=== PATIENT | female | born 1950 | race Caucasian/White ===

== ENCOUNTER → 2016-11-18 | Outpatient (CLI) | payer BC ==
[2016-11-18 10:13] LABS: Basophils % (A) 0 %; CH 31.1; CHCM 33.8; Eosinophils # (A) 0.1 k/uL (0-0.7); Eosinophils % (A) 1 %; HCT 46.6 % (34.0-46.0); HGB 15.4 gm/dL (11.4-16.0); Luc # (Auto) 0.14; Luc % (Auto) 2; Lymphocytes # (A) 2.9 k/uL (1.0-4.8); Lymphocytes % (A) 34 %; MCH 30.6 pg (25.0-35.0); MCV 92.6 fL (80.0-100.0); Mean Platelet Volume 8.2; Monocytes # (A) 0.3 k/uL (0-1.0); Monocytes % (A) 4 %; Neutrophils % (A) 59 %; RBC 5.03 m/uL (3.80-5.40); RDW 13.1 % (11.5-15.5); WBC 8.5 k/uL (3.8-10.6); WBC (Perox) 8.28
[2016-11-18 10:35] LABS: ALT 33 U/L (9-52); AST 18 U/L (14-36); Alkaline Phosphatase 97 U/L (38-126); Anion Gap 12 mmol/L; Blood Urea Nitrogen 9 mg/dL (7-17); Calcium 9.3 mg/dL (8.4-10.2); Carbon Dioxide 27 mmol/L (22-30); Chloride 103 mmol/L (98-107); Cholesterol 188 mg/dL (<200); Glucose 115 mg/dL (74-99); HDL Cholesterol 69 mg/dL (40-60); Non-African American GFR(MDRD) >60 (>60 ml/min/1.73 sqM); Potassium 4.4 mmol/L (3.5-5.1); Sodium 142 mmol/L (137-145); Total Bilirubin 0.8 mg/dL (0.2-1.3); Total Protein 7.5 g/dL (6.3-8.2); Triglycerides 342 mg/dL (<150)
[2016-11-18 12:19] LABS: Hemoglobin A1C 5.7 % (4.2-6.1)
== END | disposition home or self-care (01) ==
LOC: LABWHC1 08:52
PROVIDERS: ATTEND Internal Medicine Geriatric Medicine
DX: E03.9 Hypothyroidism, unspecified (principal); E78.5 Hyperlipidemia, unspecified; M89.9 Disorder of bone, unspecified; R73.09 Other abnormal glucose
CPT/HCPCS: 36415; 80053; 80061; 82306; 83036; 84439; 84443; 85025

== ENCOUNTER → 2018-06-10 | Outpatient (CLI) | payer MEDICARE ==
--- NOTE | 2018-06-18 14:42 | MM ---
Reason for exam: screening (asymptomatic). Last mammogram was performed 5 years and 6 months ago. History: Patient is postmenopausal. Taking estrogen for 16 years. Physical Findings: A clinical breast exam by your physician is recommended on an annual basis and results should be correlated with mammographic findings. MG 3D Screening Mammo W/Cad Bilateral CC and MLO view(s) were taken. Prior study comparison: December 15, 2012, bilateral digital screening mammo w/CAD. There are scattered fibroglandular densities. Focal asymmetry upper outer quadrant right breast appears more defined and incompletely disperses on 3D. New small nodule 12 o'clock central left breast. ASSESSMENT: Incomplete: need additional imaging evaluation, BI-RAD 0 RECOMMENDATION: Special view mammogram of both breasts. If lesion persists on supplemental views, image directed ultrasound is recommended. [facility] will attempt to contact patient to return for supplemental views and ultrasound if indicated.
== END | disposition home or self-care (01) ==
LOC: RADMAMWWP 07:46
PROVIDERS: ATTEND Family Medicine
DX: Z12.31 Encounter for screening mammogram for malignant neoplasm of breast (principal)
CPT/HCPCS: 77063; 77067

== ENCOUNTER → 2018-06-30 | Outpatient (CLI) | payer MEDICARE ==
--- NOTE | 2018-06-30 13:47 | MM ---
Reason for exam: additional evaluation requested from abnormal screening. Last mammogram was performed 1 month ago. History: Patient is postmenopausal. Taking estrogen for 16 years. Physical Findings: Nurse did not find any significant physical abnormalities on exam. MG 3D Work Up W/Cad LORENA Bilateral ML view(s) were taken. Spot compression CC and spot compression MLO view(s) were taken of the right breast. Prior study comparison: June 10, 2018, bilateral MG 3d screening mammo w/cad. December 15, 2012, bilateral digital screening mammo w/CAD. Finding: There is a 5 mm equal density (isodense), obscured margin irregular mass in the upper outer quadrant, anterior position of the right breast. Persistent left 4mm nodule 4cm from the nipple, ultrasound recommended. New finding since June 10, 2018 and December 15, 2012. These results were verbally communicated with the patient and result sheet given to the patient on 06/30/18. ASSESSMENT: Incomplete: need additional imaging evaluation, BI-RAD 0 RECOMMENDATION: Ultrasound of both breasts.
--- NOTE | 2018-06-30 13:49 | USB ---
Reason for exam: additional evaluation requested from abnormal screening. History: Patient is postmenopausal. Taking estrogen for 16 years. US Breast Workup Limited LORENA Right limited breast ultrasound including focal area of concern, retroareolar and axilla demonstrates a 4 x 3 x 3mm oval, cystic lesion at 10 o'clock and a 5 x 4 x 6mm oval, cystic lesion at 10 o'clock. Left limited breast ultrasound including focal area of concern, retroareolar and axilla demonstrates a 4 x 3 x 4mm oval, cystic lesion at 12 o'clock. These results were verbally communicated with the patient and result sheet given to the patient on 06/30/18. ASSESSMENT: Probably benign, BI-RAD 3 RECOMMENDATION: Follow-up diagnostic mammogram and ultrasound of the right breast in 6 months.
== END | disposition home or self-care (01) ==
LOC: RADMAMWWP 09:30
PROVIDERS: ATTEND Family Medicine
DX: R92.8 Other abnormal and inconclusive findings on diagnostic imaging of breast (principal)
CPT/HCPCS: 77066; 76642; G0279; 77062

== ENCOUNTER → 2018-08-13 | Outpatient (CLI) | payer MEDICARE ==
[2018-08-13 14:54] VITALS: BP 144/84; PULSE 98; RESP 18; TEMP 98.1; BMI 29.2
--- NOTE | 2018-08-13 15:57 | P.GSHP ---
History of Present Illness H&P Date: 08/13/18 Chief Complaint: abnormal mammogram and ultrasound The patient is a 68 year old white female on routine screening mammogram performed on was noted to have a 5 mm equal density obscured margin irregular mass in the upper outer quadrant anterior position of the right breast. There was a persistent left 4 mm nodule 4 cm from the nipple. Ultrasound was recommended. Ultrasound was performed on the same day and in the right breast including the focal area of concern the retroareolar area and the axilla there were cystic lesions demonstrated. In the left breast again the cystic lesion was demonstrated. It was felt that these were probably benign and follow-up diagnostic mammogram and ultrasound of the right breast in 6 months time was recommended. The patient has not felt anything in her breast. She has no nipple discharge or skin changes. She has no history of any trauma or infection in her breasts. Family history: 1. maternal uncle: lung cancer 2. maternal grandmother: bone cancer Hormonal History: menarche: 14 : 2, 2 children, first at 24, breast fed: no menopause: hysterectomy late 's, took ovaries, done for bleeding BCP: 10 years hormones: estrovan 27 still taking them Past Surgical History: 1. hysterctomy 2. times two Past Medical History: 1. ? right arthritis knee Social History: smoke: none alcohol: none drugs: none - Constitutional Constitutional: Reports sweats - EENT Comment: glasses Eyes: denies blurred vision, denies pain Ears: deny: decreased hearing, tinnitus Ears, nose, mouth and throat: Denies headache, Denies sore throat - Breasts Breasts: bilateral: as per HPI - Cardiovascular Cardiovascular: Denies chest pain, Denies shortness of breath - Respiratory Respiratory: Denies cough, Denies 7 - Gastrointestinal Gastrointestinal: Denies abdominal pain, Denies diarrhea, Denies nausea, Denies vomiting - Genitourinary (Female) Genitourinary: Denies dysuria, Denies hematuria - Menstruation Menstruation: Reports post hysterectomy - Musculoskeletal Comment: right knee pain - Neurological Neurological: Denies numbness, Denies weakness - Psychiatric Psychiatric: Denies anxiety, Denies depression - Endocrine Endocrine: Denies fatigue, Denies weight change - Hematologic/Lymphatic Comment: none - Allergic/Immunologic Comment: as noted Past Medical History Past Medical History: Hyperlipidemia History of Any Multi-Drug Resistant Organisms: None Reported Past Surgical History: Hysterectomy Additional Past Surgical History / Comment(s): COLONOSCOPY. Past Anesthesia/Blood Transfusion Reactions: No Reported Reaction Smoking Status: Former smoker Past Alcohol Use History: None Reported Additional Past Alcohol Use History / Comment(s): SMOKED ON/OFF 5 YEARS, QUIT 1991 Past Drug Use History: None Reported - Past Family History Mother Family Medical History: No Reported History Medications and Allergies Home Medications Medication Instructions Recorded Confirmed Type Estradiol [Estrace] 1 mg PO HS 07/20/17 08/13/18 History Lovastatin [Mevacor] 40 mg PO HS 07/20/17 08/13/18 History Allergies Allergy/AdvReac Type Severity Reaction Status Date / Time atorvastatin [From Lipitor] Allergy Rash/Hives Verified 06/30/18 10:17 Penicillins Allergy Unknown Verified 08/13/18 14:55 Surgical - Exam Vital Signs Temp Pulse Resp BP Pulse Ox 98.1 F 98 18 144/84 96 08/13/18 14:49 08/13/18 14:49 08/13/18 14:49 08/13/18 14:49 08/13/18 14:49 BMI 29.3 - General well developed, well nourished, no distress - ENT no hearing loss, no congestion - Neck no masses, trachea midline - Respiratory normal respiratory effort, clear to auscultation - Cardiovascular Rhythm: regular Heart Sounds: normal: S1, S2 - Abdomen Abdomen: soft - Integumentary no rash, no abnormal pigmentation - Musculoskeletal normal gait, normal posture - Psychiatric oriented to time, oriented to person, oriented to place, speech is normal, memory intact Breast examination: Right breast: Multiple positional exam no dominant masses or nodules of concern Right axilla: No adenopathy of concern Left breast: Multi-positional exam no dominant masses or nodules of concern Left axilla: No adenopathy of concern Results Mammogram and ultrasound reviewed in detail with Dr. Sánchez Assessment and Plan Assessment: Impression: 1. Left breast mammographic abnormality appears to be consistent with a cyst and is felt to be safe to repeat mammogram and ultrasound in 6 months 2. Right mammogram and ultrasound revealed area which was of somewhat more suspicion and after review with Dr. Sánchez the recommendation was for an attempted stereotactic core biopsy of the mammographic abnormality in the right breast. The greatest concern is that the patient is taking estrogen and wishes to continue to do so. 3. Right knee pain Plan: 1. Left breast mammogram and ultrasound in 6 months 2. Right breast attempted stereotactic core biopsy if we are unable to identify the area we would consider an MRI as the patient wishes to continue her estrogen The above recommendations were made after review of the mammogram and ultrasound with radiology. I discussed risk and benefits of stereotactic core biopsy with the patient and her . They understand that there is a product 25% chance that we will not be able to identify the area noted on mammogram and she would not be able to have Surgitek to core biopsy performed. The reason for getting tissue diagnosis is that the patient has been on estrogen for approximately 20 years wishes to continue the estrogen. If we are unable to biopsy this area stero- tactically consideration for MRI has been discussed and will be attempted. I discussed with the patient and her that she may want to decrease her estrogen exposure. CC: DR. Yoan Quick
== END | disposition home or self-care (01) ==
LOC: WWCWWP 14:38
PROVIDERS: ATTEND Surgery
DX: Z53.9 Procedure and treatment not carried out, unspecified reason (principal)

== ENCOUNTER → 2018-09-21 | Day surgery (SDC) | payer MEDICARE ==
[2018-09-21 07:27] VITALS: BP 130/77; PULSE 80; RESP 16; TEMP 98.1; BMI 28.8
--- NOTE | 2018-09-21 09:34 | MM ---
EXAMINATION TYPE: MG discontinued stereo core RT DATE OF EXAM: 09/21/2018 COMPARISON: Prior mammogram June 30, 2018 and older mammograms. CLINICAL HISTORY: Abnormal mammogram TECHNIQUE: Stereotactic guided core biopsy of right breast. FINDINGS: The procedure of stereotactic guided core biopsy was explained to the patient. Benefits, a lternatives, and risks were discussed. An informed consent was then obtained. Lesion upper outer quadrant despite attempts at both lateral and cc compression cannot be distinctly identified to warrant biopsy. At this point procedure was canceled. The patient was kept in the radiology department for short stay after the attempted procedure and the n discharged home in stable condition. It was explained to patient reason for canceled biopsy. Guerline t was agreeable to short-term follow-up. IMPRESSION: UNSUCCESSFUL STEREOTACTIC GUIDED CORE BIOPSY OF AREA OF CONCERN IN THE RIGHT BREAST. BI-RADS 3 PROBABLE BENIGN FINDINGS. RECOMMENDATION: PRECAUTIONARY 6 MONTH FOLLOW-UP DIAGNOSTIC RIGHT BREAST MAMMOGRAM AND ULTRASOUND.
== END | disposition home or self-care (01) ==
LOC: RADMAMWWP 06:49
PROVIDERS: ATTEND Surgery
DX: R92.8 Other abnormal and inconclusive findings on diagnostic imaging of breast (principal); Z53.8 Procedure and treatment not carried out for other reasons

== ENCOUNTER → 2019-12-26 | Outpatient (CLI) | payer MEDICARE | END | disposition home or self-care (01) | DX: R92.8 Other abnormal and inconclusive findings on diagnostic imaging of breast (principal) | CPT/HCPCS: 77066; G0279; 77062 ==

== ENCOUNTER → 2022-04-23 | Outpatient (CLI) | payer MEDICARE ==
--- NOTE | 2022-04-23 11:44 | XR ---
EXAMINATION TYPE: XR chest 2V DATE OF EXAM: 04/23/2022 COMPARISON: NONE HISTORY: COVID. TECHNIQUE: Frontal and lateral views of the chest are obtained. FINDINGS: There is no suspicious focal air space opacity, pleural effusion, or pneumothorax seen. T he cardiac silhouette size is within normal limits. The osseous structures are intact. IMPRESSION: No acute process.
== END | disposition home or self-care (01) ==
LOC: RADXRMAIN 11:03
PROVIDERS: ATTEND Nurse Practitioner Family
DX: U07.1 COVID-19 (principal)
CPT/HCPCS: 71046

== ENCOUNTER → 2023-03-27 | Outpatient (CLI) | payer MEDICARE ==
--- NOTE | 2023-03-27 12:40 | CT ---
EXAMINATION TYPE: CT sinus wo con DATE OF EXAM: 03/27/2023 COMPARISON: None HISTORY: Chronic sinusitis CT DLP: 432.4 mGycm. Automated Exposure Control for Dose Reduction was Utilized. TECHNIQUE: CT scan of the sinuses is performed without contrast, axial images are obtained, coronal r eformatted images are also reviewed. FINDINGS: The paranasal sinuses including the frontal, ethmoid, sphenoid, and maxillary sinuses bila terally are well-aerated without abnormal opacification. The ostiomeatal complex is patent bilateral ly on the coronal images. Visualized portion of mastoid air cells show no abnormal opacification. The globes are intact bilate rally. Nasal septal deviation noted. IMPRESSION: The sinuses are clear and the ostiomeatal complex is patent bilaterally.
== END | disposition home or self-care (01) ==
LOC: RADCTMAIN 12:03
PROVIDERS: ATTEND Otolaryngology
DX: J32.0 Chronic maxillary sinusitis (principal)
CPT/HCPCS: 70486

== ENCOUNTER → 2023-04-30 | Outpatient (CLI) | payer MEDICARE ==
--- NOTE | 2023-04-30 12:05 | MR ---
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 Pre and post contrast enhanced i mages are obtained. The ventricles, basal cisterns and sulci overlying the cerebral convexities are mildly enlarged. There is evidence of mild periventricular white matter ischemic demyelination. Remote deep white matter insults are also noted. There is focal mildly increased signal noted within the medulla seen best on the axial images 6 and 5 sequence 401 T2-weighted data set measuring 7.4 mm . This is not confirmed on any of the other pulse sequences and is likely artifactual in nature how er MRI of the cervical spine with and without contrast is advised. The cerebellar tonsils are low lying however there is no evidence for Chiari malformation. Mildly pro minent cisterna magna. No acute edema is seen on diffusion weighted imaging. There is no evidence for midline shift or mass effect. Acute intracranial hemorrhage or extra-axial collection is not evident. No enhancing lesions are seen. The paranasal sinuses and mastoid air cells are well-aerated. IMPRESSION: 1. Focal increased signal within the medulla only seen on the T2-weighted data set. This is likely ar tifactual in nature however dedicated MRI of the cervical spine is advised which is to include this r egion of interest with thin section imaging. 2. Low-lying cerebellar tonsils.
== END | disposition home or self-care (01) ==
LOC: RADMRIMAIN 10:29
PROVIDERS: ATTEND Otolaryngology
DX: Q07.00 Arnold-Chiari syndrome without spina bifida or hydrocephalus (principal)
CPT/HCPCS: 70553; A9585

== ENCOUNTER → 2023-05-15 | Outpatient (CLI) | payer MEDICARE ==
--- NOTE | 2023-05-17 22:00 | MR ---
EXAMINATION TYPE: MR cervical spine wo/w con DATE OF EXAM: 05/15/2023 COMPARISON: MRI brain HISTORY: PREV MR RECOMMENDED ADDITIONIAL IMAGING DUE TO POSSIBLE LESION IN MEDULLA CONTRAST: Performed utilizing 7 mL intravenous Gadavist gadolinium contrast. TECHNIQUE: Multiplanar multiecho imaging on a 3.0 Buffy magnet is performed through the cervical spin e. FINDINGS: The craniovertebral junction is normal. There is some descent of the tonsils less than 5 mm below the foramen magnum which can be within normal limits. Vertebral body alignment is normal. Di sc heights are preserved. Disc desiccation through the cervical spine No focal disc herniations or significant disc bulges are evident. No spinal canal stenosis or neural foraminal stenosis. Attention is paid to the medullary brainstem. Finding on the previous exam is not evident on the curr ent exam including T2 weighted imaging. No suspicious enhancement is evident. IMPRESSIONS: 1. No suspicious disc bulges or disc herniation cervical spine. 2. The T2 finding on the previous medullary brainstem is not reproduced on the current exam.
== END | disposition home or self-care (01) ==
LOC: RADMRIMAIN 16:00
PROVIDERS: ATTEND Otolaryngology
DX: R22.0 Localized swelling, mass and lump, head (principal)
CPT/HCPCS: 72156; A9585

== ENCOUNTER → 2023-06-30 | Outpatient (CLI) | payer MEDICARE ==
--- NOTE | 2023-06-30 11:57 | CT ---
EXAMINATION TYPE: CT chest wo con DATE OF EXAM: 06/30/2023 COMPARISON: None HISTORY: cough CT DLP: 268 mGycm. Automated Exposure Control for Dose Reduction was Utilized. TECHNIQUE: CT scan of the thorax is performed without IV contrast. FINDINGS: LUNGS: The lungs are grossly clear, there is no concerning parenchymal mass or nodule identified. T here is no pleural effusion or pneumothorax seen. The tracheobronchial tree is patent. MEDIASTINUM: Lack of IV contrast is noted to limit evaluation for mediastinal and especially hilar ad enopathy. There are no definitive greater than 1 cm hilar or mediastinal lymph nodes. No cardiomega ly or pericardial effusion is seen. OTHER: No additional significant abnormality is seen. IMPRESSION: No acute cardiopulmonary disease. No significant abnormality.
== END | disposition home or self-care (01) ==
LOC: RADCTMAIN 10:40
PROVIDERS: ATTEND Internal Medicine Critical Care Medicine
DX: R05.3 Chronic cough (principal)
CPT/HCPCS: 71250

== ENCOUNTER 2024-03-07 23:06 | Inpatient (IN) | payer MEDICARE ==
--- NOTE | 2024-03-07 23:43 | ED ---
General Adult HPI - General Chief complaint: Abdominal Pain Stated complaint: Back pain Time Seen by Provider: 03/07/24 23:19 Source: patient, RN notes reviewed, old records reviewed Mode of arrival: ambulatory Limitations: no limitations - History of Present Illness Initial comments: Patient is a 73-year-old female who presents emergency department complaining of abdominal pain. Started today at approximately 11 AM. Presents 12 hours later as it has not improved. States it has happened in the past. Has a history of diabetes and is on Ozempic. Also has a history of hyperlipidemia. No cardiac history. History of section but no other abdominal surgeries. Also history of hysterectomy. States she feels nauseous. States the pain radiates from her epigastric region straight through the back. No radiation up into her chest. No shortness of breath, [place], fever. No cough or congestion. No urinary complaints. No change in stooling. Presents for further evaluation at this time. - Related Data Home Medications Medication Instructions Recorded Confirmed Lovastatin [Mevacor] 40 mg PO HS 07/20/17 09/21/18 estradioL [Estrace] 1 mg PO HS 07/20/17 09/21/18 Allergies Allergy/AdvReac Type Severity Reaction Status Date / Time atorvastatin [From Lipitor] Allergy Rash/Hives Verified 03/07/24 23:12 Penicillins Allergy Unknown Verified 03/07/24 23:12 Review of Systems ROS Statement: Those systems with pertinent positive or pertinent negative responses have been documented in the HPI. Review of Systems: CONST: Denies fever EYES: Denies blurry vision ENT: Denies nasal congestion C/V: Denies Chest pain RESP: Denies shortness of breath GI: Endorses abdominal pain : Denies dysuria SKIN: Denies rash. MSK: Denies joint pain. NEURO: Denies headache ROS Other: All systems not noted in ROS Statement are negative. Past Medical History Past Medical History: Diabetes Mellitus, Hyperlipidemia History of Any Multi-Drug Resistant Organisms: None Reported Past Surgical History: Hysterectomy Additional Past Surgical History / Comment(s): COLONOSCOPY. Past Anesthesia/Blood Transfusion Reactions: No Reported Reaction Past Psychological History: No Psychological Hx Reported Smoking Status: Never smoker Past Alcohol Use History: None Reported Past Drug Use History: None Reported - Past Family History Mother Family Medical History: No Reported History General Exam - General Exam Comments Initial Comments: General: Appears in mild to moderate discomfort secondary to abdominal pain. HEAD: Normal with no signs of head trauma. EYES: PERRLA, EOMI, conjunctiva normal, no discharge. ENT: Hearing grossly intact, normal oropharynx. RESPIRATORY: Clear breath sounds bilaterally. No wheezes, rales, or rhonchi. C/V: Regular rate and rhythm. S1 and S2 auscultated, no edema, peripheral pulses 2+ and intact throughout ABD: Abdomen soft, nondistended. Tender to palpation in the epigastric region. No guarding. No rebound tenderness. No peritoneal signs. EXT: Normal range of motion, no obvious deformity SKIN: No rashes or lesions observed on exposed skin. NEURO: Oriented x 4. Limitations: no limitations Course Vital Signs 03/07/24 03/08/24 03/08/24 23:10 00:03 02:00 Temperature 98.4 F Pulse Rate 67 66 83 Respiratory 18 18 18 Rate Blood Pressure 134/81 145/62 154/74 O2 Sat by Pulse 99 98 99 Oximetry 03/08/24 03/08/24 04:00 05:21 Temperature 98.7 F Pulse Rate 82 67 Respiratory 19 13 Rate Blood Pressure 137/67 145/61 O2 Sat by Pulse 96 95 Oximetry Medical Decision Making - Medical Decision Making Was pt. sent in by a medical professional or institution (, PA, HEATING AND VENTILATING WORKER, urgent care, hospital, or jail...) When possible be specific @ -No Did you speak to anyone other than the patient for history (EMS, parent, family, police, friend...)? What history was obtained from this source @ -No Did you review nursing and triage notes (agree or disagree)? Why? @ -I reviewed and agree with nursing and triage notes Were old charts reviewed (outside hosp., previous admission, EMS record, old EKG, old radiological studies, urgent care reports/EKG's, jail records)? Report findings @ -No old charts were reviewed Differential Diagnosis (chest pain, altered mental status, abdominal pain women, abdominal pain men, vaginal bleeding, weakness, fever, dyspnea, syncope, headache, dizziness, GI bleed, back pain, seizure, CVA, palpatations, mental health, musculoskeletal)? @ -Differential Abdominal Pain Women: Appendicitis, Cholecystitis, diverticulosis, ischemic bowel, pancreatitis, hepatitis, UTI, gastroenteritis, AAA, incarcerated hernia, bowel obstruction, constipation, inflammatory bowel, hepatitis, peptic ulcer disease, splenic infarction, perforated viscus, vulvitis, ovarian torsion, PID, kidney stone, placenta abruption, this is not meant to be an all-inclusive list EKG interpreted by me (3pts min.). @ -As above X-rays interpreted by me (1pt min.). @ -None done CT interpreted by me (1pt min.). @ -CT imaging reveals no obvious acute intra-abdominal process to explain the patient's symptoms. U/S interpreted by me (1pt. min.). @ -None done What testing was considered but not performed or refused? (CT, X-rays, U/S, labs)? Why? @ -Consider gallbladder ultrasound however ultrasound is not present overnight. CT imaging will be obtained instead. What meds were considered but not given or refused? Why? @ -None Did you discuss the management of the patient with other professionals (professionals i.e. DrChilo, PA, HEATING AND VENTILATING WORKER, lab, RT, psych nurse, clinical social work aide, dealer compliance representative, teacher, financial aid officer, case fitter)? Give summary @ -Patient's PCP Dr. Adrian is being covered by [facility]. I spoke with Dr. Mathews who accepted the admission. Was smoking cessation discussed for >3mins.? @ -No Was critical care preformed (if so, how long)? @ -No Were there social determinants of health that impacted care today? How? (Homelessness, low income, unemployed, alcoholism, drug addiction, transportation, low edu. Level, literacy, decrease access to med. care, fdc, rehab)? @ -No Was there de-escalation of care discussed even if they declined (Discuss DNR or withdrawal of care, Hospice)? DNR status @ -No What co-morbidities impacted this encounter? (DM, HTN, Smoking, COPD, CAD, Cancer, CVA, ARF, Chemo, Hep., AIDS, mental health diagnosis, sleep apnea, morbid obesity)? @ -None Was patient admitted / discharged? Hospital course, mention meds given and route, prescriptions, significant lab abnormalities, going to OR and other pertinent info. @ -Patient presents emergency department with epigastric abdominal pain with radiation to the back. We will obtain abdominal workup, as well as atypical ACS workup. Patient was in agreement this plan. Symptoms have been ongoing for 12 hours. She will be symptomatically treated with IV fluids, morphine, Protonix, Reglan. Will obtain CT imaging of the abdomen pelvis. EKG showed no signs of acute ischemia. Troponin undetectable. Labs remarkable for an isolated leukocytosis of 16 which could be reactive as there is no obvious evidence of infection at this time. Troponin is undetectable. Urine negative. CT imaging also unremarkable. On reevaluation, patient is still having abdominal pain. We discussed her workup. Currently diagnosis is abdominal pain of unknown etiology. We will att empt a GI cocktail at this time and she was in agreement this plan. On reevaluation, patient is still having abdominal pain. I did offer observation admission which she did accept. Surgery will be consulted. We will obtain an ultrasound in the morning. Patient was in agreement this plan. Patient's PCP Dr. Adrian is being covered by [facility]. I spoke with Dr. Mathews who accepted the admission. Undiagnosed new problem with uncertain prognosis? @ -Yes Drug Therapy requiring intensive monitoring for toxicity (Heparin, Nitro, Insulin, Cardizem)? @ -No Were any procedures done? @ -No Diagnosis/symptom? @ -Intractable abdominal pain of unknown etiology Acute, or Chronic, or Acute on Chronic? @ -Acute Uncomplicated (without systemic symptoms) or Complicated (systemic symptoms)? @ -Complicated Side effects of treatment? @ -None Exacerbation, Progression, or Severe Exacerbation] @ -No Poses a threat to life or bodily function? @ -Potentially, cause unknown. - Lab Data Result diagrams: 03/07/24 23:40 03/07/24 23:40 Lab Results 03/07/24 03/07/24 03/07/24 Range/Units 23:40 23:40 23:40 WBC 16.3 H (3.8-10.6) k/uL RBC 5.35 (3.80-5.40) m/uL Hgb 16.0 (11.4-16.0) gm/dL Hct 47.7 H (34.0-46.0) % MCV 89.1 (80.0-100.0) fL MCH 30.0 (25.0-35.0) pg MCHC 33.6 (31.0-37.0) g/dL RDW 13.1 (11.5-15.5) % Plt Count 270 (150-450) k/uL MPV 8.3 Neutrophils % 87 % Lymphocytes % 10 % Monocytes % 2 % Eosinophils % 0 % Basophils % 0 % Neutrophils # 14.1 H (1.3-7.7) k/uL Lymphocytes # 1.7 (1.0-4.8) k/uL Monocytes # 0.4 (0-1.0) k/uL Eosinophils # 0.0 (0-0.7) k/uL Basophils # 0.0 (0-0.2) k/uL PT 10.6 (10.0-12.5) sec INR 1.0 (<1.2) APTT 23.2 (22.0-30.0) sec Sodium 137 (137-145) mmol/L Potassium 4.1 (3.5-5.1) mmol/L Chloride 106 (98-107) mmol/L Carbon Dioxide 21 L (22-30) mmol/L Anion Gap 10 mmol/L BUN 9 (7-17) mg/dL Creatinine 0.52 (0.52-1.04) mg/dL Est GFR (CKD-EPI)AfAm >90 (>60 ml/min/1.73 sqM) Est GFR (CKD-EPI)NonAf >90 (>60 ml/min/1.73 sqM) Glucose 154 H (74-99) mg/dL Plasma Lactic Acid Andrew (0.7-2.0) mmol/L Calcium 9.2 (8.4-10.2) mg/dL Total Bilirubin 0.8 (0.2-1.3) mg/dL AST 20 (14-36) U/L ALT 17 (4-34) U/L Alkaline Phosphatase 113 (38-126) U/L Troponin I (0.000-0.034) ng/mL Total Protein 6.8 (6.3-8.2) g/dL Albumin 4.1 (3.5-5.0) g/dL Amylase 53 (30-110) U/L Lipase 54 (23-300) U/L Urine Color Urine Appearance (Clear) Urine pH (5.0-8.0) Ur Specific [place] (1.001-1.035) Urine Protein (Negative) Urine Glucose (UA) (Negative) Urine Ketones (Negative) Urine Blood (Negative) Urine Nitrite (Negative) Urine Bilirubin (Negative) Urine Urobilinogen (<2.0) mg/dL Ur Leukocyte Esterase (Negative) 03/07/24 03/07/24 03/08/24 Range/Units 23:40 23:40 01:02 WBC (3.8-10.6) k/uL RBC (3.80-5.40) m/uL Hgb (11.4-16.0) gm/dL Hct (34.0-46.0) % MCV (80.0-100.0) fL MCH (25.0-35.0) pg MCHC (31.0-37.0) g/dL RDW (11.5-15.5) % Plt Count (150-450) k/uL MPV Neutrophils % % Lymphocytes % % Monocytes % % Eosinophils % % Basophils % % Neutrophils # (1.3-7.7) k/uL Lymphocytes # (1.0-4.8) k/uL Monocytes # (0-1.0) k/uL Eosinophils # (0-0.7) k/uL Basophils # (0-0.2) k/uL PT (10.0-12.5) sec INR (<1.2) APTT (22.0-30.0) sec Sodium (137-145) mmol/L Potassium (3.5-5.1) mmol/L Chloride (98-107) mmol/L Carbon Dioxide (22-30) mmol/L Anion Gap mmol/L BUN (7-17) mg/dL Creatinine (0.52-1.04) mg/dL Est GFR (CKD-EPI)AfAm (>60 ml/min/1.73 sqM) Est GFR (CKD-EPI)NonAf (>60 ml/min/1.73 sqM) Glucose (74-99) mg/dL Plasma Lactic Acid Andrew 1.4 (0.7-2.0) mmol/L Calcium (8.4-10.2) mg/dL Total Bilirubin (0.2-1.3) mg/dL AST (14-36) U/L ALT (4-34) U/L Alkaline Phosphatase (38-126) U/L Troponin I <0.012 (0.000-0.034) ng/mL Total Protein (6.3-8.2) g/dL Albumin (3.5-5.0) g/dL Amylase (30-110) U/L Lipase (23-300) U/L Urine Color Colorless Urine Appearance Clear (Clear) Urine pH 6.5 (5.0-8.0) Ur Specific [place] 1.040 H (1.001-1.035) Urine Protein Negative (Negative) Urine Glucose (UA) 1+ H (Negative) Urine Ketones 1+ H (Negative) Urine Blood Negative (Negative) Urine Nitrite Negative (Negative) Urine Bilirubin Negative (Negative) Urine Urobilinogen <2.0 (<2.0) mg/dL Ur Leukocyte Esterase Negative (Negative) - EKG Data -: EKG Interpreted by Me EKG Comments: 12-lead Electrocardiogram Interpretation Note EKG was reviewed and interpreted by myself. 12-lead ECG performed at 2319 is interpreted by me as revealing normal sinus rhythm at a rate of 65 beats per minute. [place] is normal. MT interval is 172 ms, QRS duration 74 ms, QTc is 397 ms.. There were no ST or T wave abnormalities to suggest myocardial ischemia or injury. R wave progression across the precordium was satisfactory. By my interpretation this EKG is non-diagnostic for acute ischemia. Disposition Clinical Impression: Abdominal pain of unknown etiology Disposition: ADMITTED IP TO THIS HOSP Condition: Stable Time of Disposition: 02:41
[2024-03-07 23:52] LABS: Basophils % (A) 0 %; Eosinophils % (A) 0 %; HCT 47.7 % (34.0-46.0); Lymphocytes # (A) 1.7 k/uL (1.0-4.8); Lymphocytes % (A) 10 %; MCHC 33.6 g/dL (31.0-37.0); MCV 89.1 fL (80.0-100.0); Mean Platelet Volume 8.3; Monocytes # (A) 0.4 k/uL (0-1.0); Monocytes % (A) 2 %; Neutrophils # (A) 14.1 k/uL (1.3-7.7); Neutrophils % (A) 87 %; Platelet Count 270 k/uL (150-450); RBC 5.35 m/uL (3.80-5.40); RDW 13.1 % (11.5-15.5); WBC 16.3 k/uL (3.8-10.6)
[2024-03-08 00:01] LABS: Partial Thromboplastin Time 23.2 sec (22.0-30.0); Prothrombin Time 10.6 sec (10.0-12.5)
[2024-03-08] MEDS: SODIUM CHLORIDE 0.9% 1,000 ML IV STA ×2 (00:05→04:14)
[2024-03-08] MEDS: MORPHINE SULFATE 2 MG/ML SYRINGE IVP STA ×2 (00:06→01:06)
[2024-03-08] MEDS: METOCLOPRAMIDE 5 MG/ML 2 ML VIAL IVP STA (00:07)
[2024-03-08] MEDS: PANTOPRAZOLE 40 MG/10 ML VIAL IVP STA (00:07)
[2024-03-08 00:13] LABS: ALT 17 U/L (4-34); AST 20 U/L (14-36); African American GFR (CKD) >90 (>60 ml/min/1.73 sqM); Albumin 4.1 g/dL (3.5-5.0); Alkaline Phosphatase 113 U/L (38-126); Amylase 53 U/L (30-110); Anion Gap 10 mmol/L; Blood Urea Nitrogen 9 mg/dL (7-17); Calcium 9.2 mg/dL (8.4-10.2); Carbon Dioxide 21 mmol/L (22-30); Chloride 106 mmol/L (98-107); Glucose 154 mg/dL (74-99); Lipase 54 U/L (23-300); Non-African American GFR(CKD) >90 (>60 ml/min/1.73 sqM); Potassium 4.1 mmol/L (3.5-5.1); Sodium 137 mmol/L (137-145); Total Bilirubin 0.8 mg/dL (0.2-1.3); Total Protein 6.8 g/dL (6.3-8.2)
[2024-03-08 01:11] LABS: Appearance,Urine Clear (Clear); Bilirubin,Urine Negative (Negative); Blood,Urine Negative (Negative); Color,Urine Colorless; Glucose,Urine (UA) 1+ (Negative); Ketones,Urine 1+ (Negative); Leukocyte Esterase,Urine Negative (Negative); Nitrite,Urine Negative (Negative); PH, Urine 6.5 (5.0-8.0); Protein,Urine Negative (Negative); Urobilinogen,Urine <2.0 mg/dL (<2.0)
--- NOTE | 2024-03-08 01:43 | CT ---
EXAM: CT Abdomen and Pelvis With Intravenous Contrast CLINICAL HISTORY: ITS.REASON CT Reason: abd pain TECHNIQUE: Axial computed tomography images of the abdomen and pelvis with intravenous contrast. CTDI is 20.5 mGy and DLP is 935.3 mGy-cm. This CT exam was performed using one or more of the following dose reduction techniques: automated exposure control, adjustment of the mA and/or kV according to patient size, and/or use of iterative reconstruction technique. COMPARISON: No relevant prior studies available. FINDINGS: Lung bases: Unremarkable. No mass. No consolidation. ABDOMEN: Liver: Hepatic steatosis. Gallbladder and bile ducts: Unremarkable. No calcified stones. No ductal dilation. Pancreas: Unremarkable. No mass. No ductal dilation. Spleen: Unremarkable. No splenomegaly. Adrenals: Unremarkable. No mass. Kidneys and ureters: Unremarkable. No hydronephrosis or delayed nephrogram. Stomach and bowel: Diverticulosis, without acute diverticulitis. No small bowel obstruction. No free intraperitoneal air. PELVIS: Appendix: Normal appendix. Bladder: Unremarkable. No mass. Reproductive: Unremarkable as visualized. ABDOMEN and PELVIS: Intraperitoneal space: Unremarkable. No free air. No significant fluid collection. Bones/joints: Degenerative changes of the spine. No acute fracture. No dislocation. Soft tissues: Unremarkable. Vasculature: Atherosclerotic changes of the aorta. No abdominal aortic aneurysm. Lymph nodes: Unremarkable. No enlarged lymph nodes. IMPRESSION: No acute findings in the abdomen or pelvis.
[2024-03-08] MEDS: MAG HYDROX/AL HYDROX/SIMETH 30 ML, HYOSCYAMINE ELIXIR 10 ML, LIDOCAINE VISCOUS 2% 10 ML PO STA (02:04)
[2024-03-08] MEDS ORDERED: NALOXONE 0.4 MG/ML 1 ML VIAL IV PRN (02:37)
[2024-03-08] MEDS: ONDANSETRON 4 MG/2 ML VIAL IVP STA (04:13)
[2024-03-08] MEDS: MORPHINE SULFATE 2 MG/ML SYRINGE IVP PRN (04:14)
--- NOTE | 2024-03-08 08:13 | US ---
EXAMINATION TYPE: US gallbladder DATE OF EXAM: 03/08/2024 COMPARISON: CT 03/08/2024 CLINICAL INDICATION: Female, 73 years old with history of n/v, epigastric pain; Pain. Nausea/vomiting . TECHNIQUE: Multiple sonographic images of the right upper quadrant are obtained. FINDINGS: EXAM MEASUREMENTS: Liver Length: 16.9 cm Gallbladder Wall: 0.23 cm CBD: 0.77 cm Right Kidney: 10.1 x 3.8 x 4.9 cm RECRUITING ADMINISTRATOR NOTES: Limited due to gas. Pancreas: Tail was not well seen. Liver: Measures upper limits. Appears very coarse with increased echogenicity. Gallbladder: Enlarged measuring 12.1 cm in length. Two hyperechoic foci with posterior shadowing s een within. Larger area measures: 2.2 x 2.1 x 1.0 cm. Hypoechoic area seen adjacent to the gallbladde r measuring 3.5 x 0.8 x 1.0 cm -suspect focal fatty sparing. Evidence for sonographic Stringer's sign: No CBD: Mildly dilated. Right Kidney: No hydronephrosis or masses seen IMPRESSION: 1. Hydropic gallbladder with cholelithiasis. No wall thickening or sonographic Stringer sign. Follow-up HIDA scan if concern for early acute cholecystitis. 2. Mildly dilated bile duct may be normal given patient's age. However, given the hydropic gallbladde r change, correlate with alkaline phosphatase and bilirubin levels to exclude biliary obstruction. 3. At least moderate hepatic steatosis.
[2024-03-08] MEDS: PANTOPRAZOLE 40 MG/10 ML VIAL IV SCH (08:22)
[2024-03-08] MEDS: HEPARIN SODIUM,PORCINE 5,000 UNIT/ML 1 ML VIAL SQ SCH (08:22)
--- NOTE | 2024-03-08 11:01 | P.HPIM ---
History of Present Illness H&P Date: 03/08/24 History of present illness; patient 73-year-old lady with past medical history significant for hypertension, hyperlipidemia, diabetes mellitus presented to ER because abdominal pain. Patient stated she was all right 1 day back when he started noticing pain in her right upper quadrant. Pain is constant, sharp, radiating to her back, not associated any nausea or vomiting. Denies any fever or chills. Patient has experienced similar pain in the past. Denies any altered bowel movements. There is no complaint of blood in the stools. Denies any increased frequency, hesitancy or urgency during urination. There is no complaint of chest pain or shortness of breath. Because of the symptoms, dorita alfaro presented to the ER Initial lab work done in the ER showed WBC 6.3, hemoglobin 16, platelet count 270, sodium 137, potassium 4.1, BUN 9, creatinine 0.52, AST 20, ALT 17, alk phos 113, bilirubin 0.8 UA negative for infection EKG done in the ER showed heart rate of 65, no ST segment elevation or depression seen, no T-wave inversions seen. CT abdominal pelvis done showed no acute intra-abdominal process Ultrasound abdomen done showed hydropic gallbladder with cholelithiasis. No wall thickening or sonographic Stringer sign Patient admitted to internal medicine service REVIEW OF SYSTEMS: CONSTITUTIONAL: No fever, no malaise, no fatigue. HEENT: No recent visual problems or hearing problems. Denied any sore throat. CARDIOVASCULAR: No chest pain, orthopnea, PND, no palpitations, no syncope. PULMONARY: No shortness of breath, no cough, no hemoptysis. GASTROINTESTINAL: As mentioned above NEUROLOGICAL: No headaches, no weakness, no numbness. HEMATOLOGICAL: Denies any bleeding or petechiae. GENITOURINARY: Denies any burning micturition, frequency, or urgency. MUSCULOSKELETAL/RHEUMATOLOGICAL: Denies any joint pain, swelling, or any muscle pain. ENDOCRINE: Denies any polyuria or polydipsia. The rest of the 14-point review of systems is negative. PHYSICAL EXAMINATION: GENERAL: The patient is alert and oriented x3, not in any acute distress. Well developed, well nourished. HEENT: Pupils are round and equally reacting to light. EOMI. No scleral icterus. No conjunctival pallor. Normocephalic, atraumatic. No pharyngeal erythema. No thyromegaly. CARDIOVASCULAR: S1 and S2 present. No murmurs, rubs, or gallops. PULMONARY: Chest is clear to auscultation, no wheezing or crackles. ABDOMEN: Tenderness in right upper quadrant, guarding noticeable, normoactive bowel sounds. No palpable organomegaly. MUSCULOSKELETAL: No joint swelling or deformity. EXTREMITIES: No cyanosis, clubbing, or pedal edema. NEUROLOGICAL: Gross neurological examination did not reveal any focal deficits. SKIN: No rashes. Assessment and plan Abdominal pain Acute cholecystitis Hydropic gallbladder Hypertension hyperlipidemia Diabetes mellitus Monitor vital signs Monitor CBC Monitor CMP Continue telemetry monitoring Continue antiemetics continue pain management Continue IV fluids ordered HIDA scan Resume home meds consult surgery Labs and medication were reviewed.. Continue same treatment. Continue with symptomatic treatment. Resume home medication. Monitor labs and vitals. DVT and GI prophylaxis. Further recommendations as per clinical course of the patient Dictation was produced using [employer] dictation software. please excuse any grammatical, word or spelling errors. Past Medical History Past Medical History: Diabetes Mellitus, Hyperlipidemia History of Any Multi-Drug Resistant Organisms: None Reported Past Surgical History: Hysterectomy Additional Past Surgical History / Comment(s): COLONOSCOPY. Past Anesthesia/Blood Transfusion Reactions: No Reported Reaction Past Psychological History: No Psychological Hx Reported Smoking Status: Never smoker Past Alcohol Use History: None Reported Past Drug Use History: None Reported - Past Family History Mother Family Medical History: No Reported History Medications and Allergies Home Medications Medication Instructions Recorded Confirmed Type estradioL [Estrace] 1 mg PO HS 07/20/17 03/08/24 History Losartan [Cozaar] 25 mg PO HS 03/08/24 03/08/24 History Omeprazole [PriLOSEC] 20 mg PO HS 03/08/24 03/08/24 History Rosuvastatin [Crestor] 20 mg PO HS 03/08/24 03/08/24 History Semaglutide [Ozempic] 1 mg SQ TU@0900 03/08/24 03/08/24 History Allergies Allergy/AdvReac Type Severity Reaction Status Date / Time atorvastatin [From Lipitor] Allergy Rash/Hives Verified 03/08/24 07:52 amoxicillin AdvReac UTI Verified 03/08/24 07:52 Penicillins AdvReac UTI Verified 03/08/24 07:52 Physical Exam Vitals: Vital Signs Temp Pulse Pulse Resp BP BP Pulse Ox 03/08/24 07:00 98 F 76 17 135/77 96 03/08/24 06:17 72 19 145/60 97 03/08/24 05:21 67 13 145/61 95 03/08/24 04:00 98.7 F 82 19 137/67 96 03/08/24 02:00 83 18 154/74 99 03/08/24 00:03 66 18 145/62 98 03/07/24 23:10 98.4 F 67 18 134/81 99 Intake and Output 03/07/24 03/08/24 03/08/24 22:59 06:59 14:59 Other: Weight 68.039 kg Results CBC & Chem 7: 03/07/24 23:40 03/07/24 23:40 Labs: Abnormal Lab Results - Last 24 Hours (Table) 03/07/24 03/07/24 03/08/24 Range/Units 23:40 23:40 01:02 WBC 16.3 H (3.8-10.6) k/uL Hct 47.7 H (34.0-46.0) % Neutrophils # 14.1 H (1.3-7.7) k/uL Carbon Dioxide 21 L (22-30) mmol/L Glucose 154 H (74-99) mg/dL Ur Specific [place] 1.040 H (1.001-1.035) Urine Glucose (UA) 1+ H (Negative) Urine Ketones 1+ H (Negative)
[2024-03-08] MEDS: LEVOFLOXACIN 500MG-D5W PMX 500 MG in DEXTROSE/WATER 1 100ML.BAG IVPB SCH (12:10)
--- NOTE | 2024-03-08 12:29 | P.GSCN ---
History of Present Illness Consult date: 03/08/24 History of present illness: CHIEF COMPLAINT: Abdominal pain HISTORY OF PRESENT ILLNESS: This is a 73-year-old female who presented to the hospital complaining of right upper quadrant abdominal pain that radiates to her back. She reports symptoms started yesterday evening around 11:00 after she drank juliet tea with milk. She has been having nausea and vomiting. Patient reports she feels that she had similar symptoms that occurred a year ago and after vomiting the symptoms resolved. She denies any fever or chills. She does report feeling warm. She reports having regular bowel movements. Gallbladder ultrasound had reported hydropic gallbladder with gallstones and mildly dilated CBD and fatty liver. LFTs are normal. Leukocytosis present. She denies any c ardiac history. Denies being on any blood thinners. Past surgical history includes hysterectomy, and bladder suspension. She is a diabetic. PAST MEDICAL HISTORY: See below PAST SURGICAL HISTORY: See below MEDICATIONS: See below ALLERGIES: See below SOCIAL HISTORY: No illicit drug use. REVIEW OF SYSTEMS: CONSTITUTIONAL: Denies fever or chills. HEENT: Denies blurred vision, vision changes, or eye pain. Denies hemoptysis CARDIOVASCULAR: Denies chest pain or pressure. RESPIRATORY: No shortness of breath. GASTROINTESTINAL: See HPI for pertinent findings HEMATOLOGIC: Denies bleeding disorders. GENITOURINARY: Denies any blood in urine or increased urinary frequency. SKIN: Denies pruitis. Denies rash. PHYSICAL EXAM: VITAL SIGNS: Reviewed GENERAL: Well-developed in no acute distress. HEENT: No sclera icterus. Extraocular movements grossly intact. Moist buccal m ucosa. Head is atraumatic, normocephalic. No nasal drainage. ABDOMEN: Soft. Nondistended. Tenderness to palpation to the right upper quadrant NEUROLOGIC: Alert and oriented. Cranial nerves II through XII grossly intact. LABORATORY DATA: WBC 16.3 Hgb 16 platelets 270 Sodium is 137 potassium 4.1 creatinine 0.52 Lactic acid 1.4 Total bilirubin 0.8 AST 20 ALT 17 alk phos 113 lipase 54 Troponin negative Urinalysis negative for infection IMAGING: CT scan abdomen pelvis no acute findings in the abdomen or pelvis Gallbladder ultrasound reports hydropic gallbladder with cholelithiasis. No wal l thickening or Stringer sign. Mild dilated bile duct may be normal given patient's age. Moderate hepatic steatosis. ASSESSMENT: 1. Acute cholecystitis. Right upper quadrant abdominal pain with nausea and vomiting. Abdominal ultrasound reporting hydropic gallbladder with cholelithiasis PLAN: -Patient scheduled for laparoscopic cholecystectomy today with Dr. Dowling -Start IV antibiotics -Keep patient n.p.o. -Continue IV fluids -Continue supportive care Physician Paralegals note has been reviewed by physician. Signing provider agrees with the documented findings, assessment, and plan of care. I have personally seen and examined the patient, reviewed the SHOW CARD LETTERER /PAs history, exam and MDM and agree with the assessment and plan as written. Based on total visit time, I have performed more than 50% of the visit. As above: Patient seen earlier this morning. She has complaints of epigastric a nd right upper quadrant pain. Some radiation to the back. This was associated with nausea and vomiting. Ultrasound and CAT scan reviewed. Patient has a distended gallbladder with borderline wall thickening. Patient has right upper quadrant tenderness. Agree with findings of acute calculus cholecystitis. Options reviewed. Will proceed with laparoscopic, possible open cholecystectomy at this time. Risks of bleeding, infection, bile leak, bile duct injury, retained common bile duct stone, trocar injury, conversion to an open procedure, hernia, anesthesia related complications were reviewed. The patient understands and wishes to proceed. Past Medical History Past Medical History: Diabetes Mellitus, Hyperlipidemia History of Any Multi-Drug Resistant Organisms: None Reported Past Surgical History: Hysterectomy Additional Past Surgical History / Comment(s): COLONOSCOPY. Past Anesthesia/Blood Transfusion Reactions: No Reported Reaction Past Psychological History: No Psychological Hx Reported Smoking Status: Never smoker Past Alcohol Use History: None Reported Past Drug Use History: None Reported - Past Family History Mother Family Medical History: No Reported History Medications and Allergies Home Medications Medication Instructions Recorded Confirmed Type estradioL [Estrace] 1 mg PO HS 07/20/17 03/08/24 History Losartan [Cozaar] 25 mg PO HS 03/08/24 03/08/24 History Omeprazole [PriLOSEC] 20 mg PO HS 03/08/24 03/08/24 History Rosuvastatin [Crestor] 20 mg PO HS 03/08/24 03/08/24 History Semaglutide [Ozempic] 1 mg SQ TU@0900 03/08/24 03/08/24 History Allergies Allergy/AdvReac Type Severity Reaction Status Date / Time atorvastatin [From Lipitor] Allergy Rash/Hives Verified 03/08/24 14:48 amoxicillin AdvReac UTI Verified 03/08/24 14:48 Penicillins AdvReac UTI Verified 03/08/24 14:48 Surgical - Exam Vital Signs Temp Pulse Resp BP Pulse Ox 98.4 F 67 18 134/81 99 03/07/24 23:10 03/07/24 23:10 03/07/24 23:10 03/07/24 23:10 03/07/24 23:10 Results - Labs 03/07/24 23:40 03/07/24 23:40 Abnormal Lab Results - Last 24 Hours (Table) 03/07/24 03/07/24 03/08/24 Range/Units 23:40 23:40 01:02 WBC 16.3 H (3.8-10.6) k/uL Hct 47.7 H (34.0-46.0) % Neutrophils # 14.1 H (1.3-7.7) k/uL Carbon Dioxide 21 L (22-30) mmol/L Glucose 154 H (74-99) mg/dL Ur Specific [place] 1.040 H (1.001-1.035) Urine Glucose (UA) 1+ H (Negative) Urine Ketones 1+ H (Negative) Diabetes panel 03/07/24 Range/Units 23:40 Sodium 137 (137-145) mmol/L Potassium 4.1 (3.5-5.1) mmol/L Chloride 106 (98-107) mmol/L Carbon Dioxide 21 L (22-30) mmol/L BUN 9 (7-17) mg/dL Creatinine 0.52 (0.52-1.04) mg/dL Glucose 154 H (74-99) mg/dL Calcium 9.2 (8.4-10.2) mg/dL AST 20 (14-36) U/L ALT 17 (4-34) U/L Alkaline Phosphatase 113 (38-126) U/L Total Protein 6.8 (6.3-8.2) g/dL Albumin 4.1 (3.5-5.0) g/dL Calcium panel 03/07/24 Range/Units 23:40 Calcium 9.2 (8.4-10.2) mg/dL Albumin 4.1 (3.5-5.0) g/dL Pituitary panel 03/07/24 Range/Units 23:40 Sodium 137 (137-145) mmol/L Potassium 4.1 (3.5-5.1) mmol/L Chloride 106 (98-107) mmol/L Carbon Dioxide 21 L (22-30) mmol/L BUN 9 (7-17) mg/dL Creatinine 0.52 (0.52-1.04) mg/dL Glucose 154 H (74-99) mg/dL Calcium 9.2 (8.4-10.2) mg/dL Adrenal panel 03/07/24 Range/Units 23:40 Sodium 137 (137-145) mmol/L Potassium 4.1 (3.5-5.1) mmol/L Chloride 106 (98-107) mmol/L Carbon Dioxide 21 L (22-30) mmol/L BUN 9 (7-17) mg/dL Creatinine 0.52 (0.52-1.04) mg/dL Glucose 154 H (74-99) mg/dL Calcium 9.2 (8.4-10.2) mg/dL Total Bilirubin 0.8 (0.2-1.3) mg/dL AST 20 (14-36) U/L ALT 17 (4-34) U/L Alkaline Phosphatase 113 (38-126) U/L Total Protein 6.8 (6.3-8.2) g/dL Albumin 4.1 (3.5-5.0) g/dL
[2024-03-08] MEDS: SODIUM CHLORIDE 0.9% 1,000 ML IV ONE (14:58)
[2024-03-08 15:01] LABS: Glucose,Whole Blood 156 mg/dL (70-110)
[2024-03-08] MEDS: ONDANSETRON 4 MG/2 ML VIAL IVP ONE (15:10)
[2024-03-08] MEDS: DEXAMETHASONE SOD PHOSPHATE 4 MG/ML 1 ML VIAL IVP ONE (15:10)
[2024-03-08] MEDS: METOCLOPRAMIDE 5 MG/ML 2 ML VIAL IVP ONE (15:14)
[2024-03-08] MEDS ORDERED: HEPARIN SODIUM,PORCINE 5,000 UNIT/ML 1 ML VIAL ONE (16:24)
[2024-03-08] MEDS ORDERED: NEOSTIGMINE 1 MG/ML 10 ML VIAL ONE (16:24)
[2024-03-08] MEDS ORDERED: PROPOFOL 10 MG/ML 20 ML VIAL IV ONE (16:24)
[2024-03-08] MEDS ORDERED: ROCURONIUM 10 MG/ML (5 ML VIAL) IV ONE (16:24)
[2024-03-08] MEDS ORDERED: GLYCOPYRROLATE 0.2 MG/ML 2 ML VIAL ONE (16:24)
[2024-03-08] MEDS ORDERED: SUCCINYLCHOLINE CHLORIDE 200 MG/10 ML VIAL IV ONE (16:24)
[2024-03-08] MEDS ORDERED: fentaNYL (PF) 50 MCG/ML 2 ML AMP ONE (16:24)
[2024-03-08] MEDS ORDERED: LIDOCAINE 1% INJ 10MG/ML (20 ML MDV) ONE (16:24)
[2024-03-08] MEDS ORDERED: MIDAZOLAM 2 MG/2 ML VIAL ONE (16:24)
[2024-03-08] MEDS: SODIUM CHLORIDE 0.9% 100 ML with ceFAZolin 2,000 MG IV ONE (16:29)
[2024-03-08] MEDS: BUPIVACAINE (PF) 0.25% 30 ML VIAL SQ ONE (16:50)
[2024-03-08] MEDS: LACTATED RINGERS 1,000 ML IV ONE (17:31)
[2024-03-08] MEDS ORDERED: traMADol 50 MG TAB PO PRN (17:41)
[2024-03-08] MEDS ORDERED: ACETAMINOPHEN TAB 325 MG TAB PO PRN (17:42)
--- NOTE | 2024-03-08 17:45 | P.OP ---
Date of Procedure: 03/08/24 Procedure(s) Performed: PREOPERATIVE DIAGNOSIS: Acute calculus cholecystitis POSTOPERATIVE DIAGNOSIS: Acute gangrenous calculus cholecystitis with hydrops PROCEDURE: Laparoscopic cholecystectomy SURGEON: Josey EBL: 20 cc ANESTHESIA: Gen. COMPLICATIONS: None OPERATIVE PROCEDURE: The patient was brought and placed on the operating room table in the supine position. The patient was placed under general anesthesia at that time. The abdomen was prepped and draped in the usual sterile fashion. A small vertical infraumbilical incision was made. The fascia was grasped with the Seda forceps. The fascia was retracted anteriorly. The Veress needle was advanced into the peritoneal cavity. The saline drop test was normal. Insufflation took place up to 15 mmHg. A 5 mm optical trocar was advanced and the peritoneal cavity. 2 additional 5 mm trochars were placed in the right upper quadrant under direct visualization. A 12 mm trocar was advanced into the epigastric incision site. The gallbladder was acutely inflamed. The omentum was adherent to it but loosely. Blunt dissection revealed the gallbladder. It had gangrenous changes. There was fibropurulent exudate along the liver margin. An opening was made in the gallbladder and the hydrops fluid was evacuated. The gallbladder was retracted superiorly and laterally. The peritoneum overlying the infundibulum was bluntly dissected. The patient's cystic duct was visualized. The junction between the cystic duct common and hepatic duct was identified. The critical view of safety was achieved after blunt dissection. The cystic duct was then divided after placement of 3 12 mm clips on the patient's side and one on the specimen side. The cystic artery was identified and clipped as well. A small vessel was seen along the gallbladder fossa and clipped as well. The gallbladder was then removed from the liver bed using electrocautery. The gallbladder was then removed from the epigastric trocar site with an Endo Catch bag. The gallbladder fossa was irrigated with saline. There was no evidence of any bleeding or biliary drainage seen. I did place a drain in the gallbladder fossa exiting from the lateral 5 mm trocar site. This was sutured to the skin using a 3-0 silk stitch. The fascia at the 12 millimeter site was closed using a Robi-Clay 0 Vicryl stitch. The trochars were then removed. The skin at all 3 sites was closed using a 4-0 Monocryl stitch. Skin glue was utilized on the incision sites. At the end of this procedure the sponge and needle counts were correct. DISPOSITION: Stable to the recovery room
[2024-03-08 18:16] LABS: Glucose,Whole Blood 153 mg/dL (70-110)
[2024-03-08] MEDS: HYDROmorphone 0.5 MG/0.5 ML SYRINGE IVP ONE (18:40)
[2024-03-08] MEDS: METOCLOPRAMIDE 5 MG/ML 2 ML VIAL ONE (19:18)
[2024-03-08] MEDS: ONDANSETRON 4 MG/2 ML VIAL ONE (19:18)
[2024-03-08] MEDS: PANTOPRAZOLE 40 MG TABLET PO SCH (20:51)
[2024-03-08] MEDS: HYDROcodone/APAP 5-325MG 1 EACH TAB PO PRN (21:05)
[2024-03-08] MEDS: LOSARTAN 25 MG TAB PO SCH (23:24)
[2024-03-09 08:03] LABS: Basophils % (A) 0 %; Eosinophils # (A) 0.1 k/uL (0-0.7); Eosinophils % (A) 1 %; HCT 43.4 % (34.0-46.0); HGB 14.2 gm/dL (11.4-16.0); Lymphocytes # (A) 1.3 k/uL (1.0-4.8); Lymphocytes % (A) 8 %; MCH 30.1 pg (25.0-35.0); MCHC 32.8 g/dL (31.0-37.0); MCV 91.8 fL (80.0-100.0); Mean Platelet Volume 8.7; Monocytes # (A) 0.6 k/uL (0-1.0); Monocytes % (A) 4 %; Neutrophils % (A) 87 %; Platelet Count 201 k/uL (150-450); RBC 4.73 m/uL (3.80-5.40); RDW 13.5 % (11.5-15.5)
[2024-03-09 08:14] LABS: ALT 155 U/L (4-34); AST 277 U/L (14-36); African American GFR (CKD) >90 (>60 ml/min/1.73 sqM); Albumin 3.2 g/dL (3.5-5.0); Alkaline Phosphatase 150 U/L (38-126); Anion Gap 3 mmol/L; Blood Urea Nitrogen 5 mg/dL (7-17); Calcium 8.6 mg/dL (8.4-10.2); Carbon Dioxide 25 mmol/L (22-30); Chloride 109 mmol/L (98-107); Glucose 132 mg/dL (74-99); Non-African American GFR(CKD) >90 (>60 ml/min/1.73 sqM); Sodium 137 mmol/L (137-145); Total Bilirubin 3.3 mg/dL (0.2-1.3); Total Protein 5.6 g/dL (6.3-8.2)
[2024-03-09 08:20] LABS: Potassium 4.2 mmol/L (3.5-5.1)
--- NOTE | 2024-03-09 12:49 | P.PN ---
Subjective Progress Note Date: 03/09/24 CHIEF COMPLAINT: Gangrenous cholecystitis HISTORY OF PRESENT ILLNESS: Patient postop day #1 status post laparoscopic cholecystectomy. Patient's pain is controlled. She denies any nausea or vomiting. She denies any flatus. Afebrile. WBC 16 Hgb 14.2 platelets 201 LFTs and bilirubin have increased. Total bili 3.3 AST 277 ALT 155 alk phos 150. BALAJI drain serosanguineous output 100 mL PHYSICAL EXAM: VITAL SIGNS: Reviewed. GENERAL: Well-developed in no acute distress. ABDOMEN: Soft. Nondistended. Mild tenderness at incision sites. BALAJI drain in place NEUROLOGIC: Alert and oriented. Cranial nerves II through XII grossly intact. ASSESSMENT: 1. Acute gangrenous calculus cholecystitis with hydrops status post laparoscopic cholecystectomy 2. Elevated LFTs and total bilirubin PLAN: -Continue clear liquid diet and advance as tolerated -Repeat LFTs in a.m. -Noted consult placed for GI service regarding elevated LFTs -Encourage patient to increase activity level -Encourage patient to use incentive spirometer -Continue antibiotics -DVT prophylaxis subcu heparin Physician Environmental Sampler note has been reviewed by physician. Signing provider agrees with the documented findings, assessment, and plan of care. Objective - Vital Signs Vital signs: Vital Signs Temp 97.0 F L 03/09/24 07:00 Pulse 88 03/09/24 08:00 Resp 17 03/09/24 08:00 BP 128/84 03/09/24 07:00 Pulse Ox 97 03/09/24 07:43 FiO2 Intake & Output 03/08/24 03/09/24 03/09/24 18:59 06:59 18:59 Intake Total 900 Output Total 20 100 Balance 880 -100 Weight 68.039 kg Intake: IV 900 Output: Drainage 100 Right Anterior Medial 100 Abdomen Estimated Blood Loss 20 Other: # Voids 1 2 - Labs CBC & Chem 7: 03/09/24 07:38 03/09/24 07:38 Labs: Abnormal Lab Results - Last 24 Hours (Table) 03/08/24 03/08/24 03/09/24 Range/Units 15:00 18:14 07:38 WBC 16.0 H (3.8-10.6) k/uL Neutrophils # 14.0 H (1.3-7.7) k/uL Chloride (98-107) mmol/L BUN (7-17) mg/dL Creatinine (0.52-1.04) mg/dL Glucose (74-99) mg/dL POC Glucose (mg/dL) 156 H 153 H (70-110) mg/dL Total Bilirubin (0.2-1.3) mg/dL AST (14-36) U/L ALT (4-34) U/L Alkaline Phosphatase (38-126) U/L Total Protein (6.3-8.2) g/dL Albumin (3.5-5.0) g/dL 03/09/24 Range/Units 07:38 WBC (3.8-10.6) k/uL Neutrophils # (1.3-7.7) k/uL Chloride 109 H (98-107) mmol/L BUN 5 L (7-17) mg/dL Creatinine 0.44 L (0.52-1.04) mg/dL Glucose 132 H (74-99) mg/dL POC Glucose (mg/dL) (70-110) mg/dL Total Bilirubin 3.3 H (0.2-1.3) mg/dL AST 277 H (14-36) U/L ALT 155 H (4-34) U/L Alkaline Phosphatase 150 H (38-126) U/L Total Protein 5.6 L (6.3-8.2) g/dL Albumin 3.2 L (3.5-5.0) g/dL
--- NOTE | 2024-03-09 13:40 | P.PN ---
Subjective Progress Note Date: 03/09/24 patient 73-year-old lady with past medical history significant for hypertension, hyperlipidemia, diabetes mellitus presented to ER because abdominal pain. Patient stated she was all right 1 day back when he started noticing pain in her right upper quadrant. Pain is constant, sharp, radiating to her back, not associated any nausea or vomiting. Denies any fever or chills. Patient has experienced similar pain in the past. Denies any altered bowel movements. There is no complaint of blood in the stools. Denies any increased frequency, hesitancy or urgency during urination. There is no complaint of chest pain or shortness of breath. Because of the symptoms, patient presented to the ER Initial lab work done in the ER showed WBC 6.3, hemoglobin 16, platelet count 270, sodium 137, potassium 4.1, BUN 9, creatinine 0.52, AST 20, ALT 17, alk phos 113, bilirubin 0.8 UA negative for infection EKG done in the ER showed heart rate of 65, no ST segment elevation or depression seen, no T-wave inversions seen. CT abdominal pelvis done showed no acute intra-abdominal process Ultrasound abdomen done showed hydropic gallbladder with cholelithiasis. No wall thickening or sonographic Stringer sign Patient admitted to internal medicine service 03/09. Patient seen and examined. S/p laparoscopic cholecystectomy on 03/08. Currently denies abdominal pain. Denies nausea or vomiting REVIEW OF SYSTEMS: CONSTITUTIONAL: No fever, no malaise,. CARDIOVASCULAR: No chest pain, no palpitations, no syncope. PULMONARY: No shortness of breath, no cough, GASTROINTESTINAL: As mentioned above NEUROLOGICAL: No headaches, no weakness, PHYSICAL EXAMINATION: GENERAL: The patient is alert and oriented x3, not in any acute distress. Well developed, well nourished. HEENT: Pupils are round and equally reacting to light. EOMI. No scleral icterus. No conjunctival pallor. Normocephalic, atraumatic. No pharyngeal erythema. No thyromegaly. CARDIOVASCULAR: S1 and S2 present. No murmurs, rubs, or gallops. PULMONARY: Chest is clear to auscultation, no wheezing or crackles. ABDOMEN: Soft, nontender, nondistended, normoactive bowel sounds. No palpable organomegaly. Laparoscopic surgical incisions seen, drain seen MUSCULOSKELETAL: No joint swelling or deformity. EXTREMITIES: No cyanosis, clubbing, or pedal edema. NEUROLOGICAL: Gross neurological examination did not reveal any focal deficits. SKIN: No rashes. Assessment and plan Abdominal pain Acute acalculous cholecystitis Acute transaminitis Hydropic gallbladder Hypertension hyperlipidemia Diabetes mellitus Monitor vital signs Monitor CBC Monitor CMP Continue telemetry monitoring Status post lap reg on 02/28 Continue antiemetics continue pain management Continue IV fluids Because of elevated LFTs, DC statin Surgery following Consult GI Labs and medication were reviewed.. Continue same treatment. Continue with symptomatic treatment. Resume home medication. Monitor labs and vitals. DVT and GI prophylaxis. Further recommendations as per clinical course of the patient Dictation was produced using [employer] dictation software. please excuse any grammatical, word or spelling errors. Objective - Vital Signs Vital signs: Vital Signs Temp 97.0 F L 03/09/24 07:00 Pulse 88 03/09/24 07:00 Resp 17 03/09/24 07:00 BP 128/84 03/09/24 07:00 Pulse Ox 97 03/09/24 07:43 FiO2 Intake & Output 03/08/24 03/09/24 03/09/24 18:59 06:59 18:59 Intake Total 900 Output Total 20 100 Balance 880 -100 Weight 68.039 kg Intake: IV 900 Output: Drainage 100 Right Anterior Medial 100 Abdomen Estimated Blood Loss 20 Other: # Voids 1 2 - Labs CBC & Chem 7: 03/09/24 07:38 03/09/24 07:38 Labs: Abnormal Lab Results - Last 24 Hours (Table) 03/08/24 03/08/24 03/09/24 Range/Units 15:00 18:14 07:38 WBC 16.0 H (3.8-10.6) k/uL Neutrophils # 14.0 H (1.3-7.7) k/uL Chloride (98-107) mmol/L BUN (7-17) mg/dL Creatinine (0.52-1.04) mg/dL Glucose (74-99) mg/dL POC Glucose (mg/dL) 156 H 153 H (70-110) mg/dL Total Bilirubin (0.2-1.3) mg/dL AST (14-36) U/L ALT (4-34) U/L Alkaline Phosphatase (38-126) U/L Total Protein (6.3-8.2) g/dL Albumin (3.5-5.0) g/dL 03/09/24 Range/Units 07:38 WBC (3.8-10.6) k/uL Neutrophils # (1.3-7.7) k/uL Chloride 109 H (98-107) mmol/L BUN 5 L (7-17) mg/dL Creatinine 0.44 L (0.52-1.04) mg/dL Glucose 132 H (74-99) mg/dL POC Glucose (mg/dL) (70-110) mg/dL Total Bilirubin 3.3 H (0.2-1.3) mg/dL AST 277 H (14-36) U/L ALT 155 H (4-34) U/L Alkaline Phosphatase 150 H (38-126) U/L Total Protein 5.6 L (6.3-8.2) g/dL Albumin 3.2 L (3.5-5.0) g/dL
--- NOTE | 2024-03-09 16:34 | P.CONS ---
History of Present Illness - Reason for Consult Consult date: 03/09/24 Elevated LFTs, recent lap reg Requesting physician: Josué Mathews - Chief Complaint Abdominal pain - History of Present Illness 73-year-old female who had presented to the hospital complaining of right upper quadrant abdominal pain radiating to her back. Symptoms started Thursday evening around 11 PM. She was having nausea vomiting associated with it. Reportedly similar symptoms occurred a year ago. She had a gallbladder ultrasound reported hydropic gallbladder with gallstones mildly dilated CBD and fatty liver. LFTs were normal on admission. General surgery was consulted and patient underwent laparoscopic cholecystectomy yesterday with findings of acute gangrenous calculus cholecystitis with hydrops. She is postop day #1. She was noted to have elevated LFTs and primary medical team consulted gastroenterology due to elevated LFTs. Patient states abdominal pain is improved. She is tolerating clear liquid diet. She has been afebrile. Denies any nausea or vomiting. Today's labs WBC 16.0 hemoglobin 14.2 hematocrit 43 platelet count 201,000 INR was 1.0 total bilirubin 3.3 AST 277 ALT 155 alkaline phosphatase 150 Review of Systems REVIEW OF SYSTEMS: CARDIOPULMONARY: No chest pain or shortness of breath. Gastrointestinal: No abdominal pain, epigastric pain resolved. Has surgical discomfort. No nausea or vomiting. No hematemesis, coffee-ground emesis. No rectal bleeding, or melena. GENITOURINARY: No dysuria or hematuria. MUSCULOSKELETAL: Reports normal range of motion., Joint pain. SKIN: No rashes. No jaundice. ENDOCRINE: No chills, fevers. No excessive weight gain or loss. No polydipsia or polyuria. PSYCHIATRIC: Unremarkable. NEUROLOGY: No change in mental status. Denies dizziness, headache. ENT: Vision unremarkable. CONSTITUTIONAL: No recent weight loss. No fever, chills, night sweats. Past Medical History Past Medical History: Diabetes Mellitus, Hyperlipidemia History of Any Multi-Drug Resistant Organisms: None Reported Past Surgical History: Hysterectomy Additional Past Surgical History / Comment(s): COLONOSCOPY. Past Anesthesia/Blood Transfusion Reactions: No Reported Reaction Past Psychological History: No Psychological Hx Reported Smoking Status: Never smoker Past Alcohol Use History: None Reported Additional Past Alcohol Use History / Comment(s): SMOKED ON/OFF 5 YEARS, QUIT 1971 EST Past Drug Use History: None Reported - Past Family History Mother Family Medical History: No Reported History Medications and Allergies Home Medications Medication Instructions Recorded Confirmed Type estradioL [Estrace] 1 mg PO HS 07/20/17 03/08/24 History Losartan [Cozaar] 25 mg PO HS 03/08/24 03/08/24 History Omeprazole [PriLOSEC] 20 mg PO HS 03/08/24 03/08/24 History Rosuvastatin [Crestor] 20 mg PO HS 03/08/24 03/08/24 History Semaglutide [Ozempic] 1 mg SQ TU@0900 03/08/24 03/08/24 History Allergies Allergy/AdvReac Type Severity Reaction Status Date / Time atorvastatin [From Lipitor] Allergy Rash/Hives Verified 03/08/24 14:48 amoxicillin AdvReac UTI Verified 03/08/24 14:48 Penicillins AdvReac UTI Verified 03/08/24 14:48 Physical Exam Vitals: Vital Signs Temp Pulse Resp BP Pulse Ox 03/09/24 08:00 88 17 03/09/24 07:43 97 03/09/24 07:00 97.0 F L 88 17 128/84 98 03/09/24 02:00 97.9 F 93 18 121/83 96 03/08/24 22:00 91 110/66 98 03/08/24 21:30 98.4 F 94 108/66 97 03/08/24 21:00 98.7 F 90 18 124/72 98 03/08/24 20:30 98.3 F 89 18 123/73 97 03/08/24 20:00 98.3 F 90 18 120/71 97 03/08/24 19:45 85 18 121/71 96 03/08/24 19:30 92 117/69 03/08/24 18:49 86 16 129/61 96 03/08/24 18:40 89 16 132/63 93 L 03/08/24 18:25 89 20 133/62 92 L 03/08/24 18:09 91 16 127/60 92 L 03/08/24 17:54 97.7 F 100 14 128/62 95 03/08/24 14:55 98.4 F 88 16 135/61 97 03/08/24 14:22 98.1 F 82 16 114/66 96 03/08/24 14:00 76 17 Intake and Output 0503/09/24 03/09/24 22:59 06:59 14:59 Intake Total 900 Output Total 70 50 Balance 830 -50 Intake: IV 900 Output: Drainage 50 50 Right Anterior Medial 50 50 Abdomen Estimated Blood Loss 20 Other: # Voids 2 2 Weight 68.039 kg General appearance: The patient is alert, oriented, appears in no acute distress. HET: Head is normocephalic and atraumatic. Conjunctiva pink. Sclera anicteric. Neck: Supple without lymphadenopathy. Trachea midline. Heart: Regular. Lungs: Equal expansion, normal respiratory effort. Abdomen: Soft, nontender, surgical incisions well-approximated, nondistended. Skin: No rashes. No jaundice. Extremities: Normal skin color and turgor. No pedal edema. Neurological: No focal deficits. Alert and oriented x3. Results CBC & Chem 7: 03/09/24 07:38 03/09/24 07:38 Labs: Abnormal Lab Results - Last 24 Hours (Table) 03/08/24 03/08/24 03/09/24 Range/Units 15:00 18:14 07:38 WBC 16.0 H (3.8-10.6) k/uL Neutrophils # 14.0 H (1.3-7.7) k/uL Chloride (98-107) mmol/L BUN (7-17) mg/dL Creatinine (0.52-1.04) mg/dL Glucose (74-99) mg/dL POC Glucose (mg/dL) 156 H 153 H (70-110) mg/dL Total Bilirubin (0.2-1.3) mg/dL AST (14-36) U/L ALT (4-34) U/L Alkaline Phosphatase (38-126) U/L Total Protein (6.3-8.2) g/dL Albumin (3.5-5.0) g/dL 03/09/24 Range/Units 07:38 WBC (3.8-10.6) k/uL Neutrophils # (1.3-7.7) k/uL Chloride 109 H (98-107) mmol/L BUN 5 L (7-17) mg/dL Creatinine 0.44 L (0.52-1.04) mg/dL Glucose 132 H (74-99) mg/dL POC Glucose (mg/dL) (70-110) mg/dL Total Bilirubin 3.3 H (0.2-1.3) mg/dL AST 277 H (14-36) U/L ALT 155 H (4-34) U/L Alkaline Phosphatase 150 H (38-126) U/L Total Protein 5.6 L (6.3-8.2) g/dL Albumin 3.2 L (3.5-5.0) g/dL Comments: Gallbladder ultrasound reported hydropic gallbladder with cholelithiasis. No wall thickening or sonographic Stringer sign. Follow-up HIDA scan if concern for early acute cholecystitis. Mildly dilated bile duct may be normal given patient's age. However given the hydropic gallbladder change correlate with alkaline phosphatase and bilirubin levels to exclude biliary obstruction. At least moderate hepatic steatosis CT abdomen pelvis with contrast reports no acute findings in the abdomen or pelvis. Assessment and Plan (1) Elevated LFTs Narrative/Plan: 73-year-old female who is postop day #1 for laparoscopic cholecystectomy with findings of acute gangrenous calculus cystitis. Patient initially came in with normal LFTs. Noted to have elevation on postop day 1. Patient's pain is improved. This may be secondary to extent of inflammation and gangrenous gallbladder. Need to consider possible choledocholithiasis. Will plan for repeat LFTs tomorrow with further recommendations. Current Visit: Yes Status: Acute Code(s): R79.89 - OTHER SPECIFIED ABNORMAL FINDINGS OF BLOOD CHEMISTRY SNOMED Code(s): 757031336 (2) Gangrenous cholecystitis Current Visit: Yes Status: Acute Code(s): K81.0 - ACUTE CHOLECYSTITIS SNOMED Code(s): 47710759 Plan: 1. Continue symptomatic and supportive care 2. Continue clear liquid diet, n.p.o. after midnight 3. Repeat CBC, CMP tomorrow 4. Continue with antibiotics per recommendations from general surgery 5. Further recommendations forthcoming based on clinical course Thank you for this consultation, we will continue to follow. Dr. Galdino Kelsey I agree with the dictator's note, documented as a scribe by Kisha CLARKE .
[2024-03-09] MEDS ORDERED: DEXTROSE 50% SYRINGE 50 ML IVP PRN ×2 (18:00)
[2024-03-09 18:09] LABS: Glucose,Whole Blood 117 mg/dL (70-110)
[2024-03-09 20:12] LABS: Glucose,Whole Blood 169 mg/dL (70-110)
[2024-03-09] MEDS: INSULIN ASPART (NovoLOG) 100 UNIT/ML VIAL SQ SCH (20:26)
[2024-03-10 06:04] LABS: Glucose,Whole Blood 110 mg/dL (70-110)
[2024-03-10 09:16] LABS: Basophils % (A) 0 %; Eosinophils % (A) 0 %; HCT 44.5 % (34.0-46.0); HGB 14.6 gm/dL (11.4-16.0); Lymphocytes # (A) 0.8 k/uL (1.0-4.8); Lymphocytes % (A) 8 %; MCH 29.9 pg (25.0-35.0); MCHC 32.8 g/dL (31.0-37.0); MCV 91.2 fL (80.0-100.0); Mean Platelet Volume 8.4; Monocytes # (A) 0.4 k/uL (0-1.0); Monocytes % (A) 4 %; Neutrophils % (A) 87 %; Platelet Count 230 k/uL (150-450); RBC 4.88 m/uL (3.80-5.40); RDW 13.8 % (11.5-15.5); WBC 9.3 k/uL (3.8-10.6)
[2024-03-10 09:27] LABS: ALT 267 U/L (4-34); AST 270 U/L (14-36); African American GFR (CKD) >90 (>60 ml/min/1.73 sqM); Alkaline Phosphatase 262 U/L (38-126); Anion Gap 5 mmol/L; Blood Urea Nitrogen 5 mg/dL (7-17); Carbon Dioxide 26 mmol/L (22-30); Chloride 104 mmol/L (98-107); Glucose 141 mg/dL (74-99); Non-African American GFR(CKD) >90 (>60 ml/min/1.73 sqM); Potassium 3.6 mmol/L (3.5-5.1); Sodium 135 mmol/L (137-145); Total Bilirubin 4.3 mg/dL (0.2-1.3); Total Protein 5.6 g/dL (6.3-8.2)
[2024-03-10 11:49] LABS: Glucose,Whole Blood 114 mg/dL (70-110)
--- NOTE | 2024-03-10 12:54 | P.PN ---
Subjective Progress Note Date: 03/10/24 CHIEF COMPLAINT: Gangrenous cholecystitis HISTORY OF PRESENT ILLNESS: Patient postop day #2 status post laparoscopic cholecystectomy. Patient reports her pain is controlled. She is having flatus. She has been burping. Her urine has been dark. She did ambulate the hallway. She has no appetite. She denies any nausea or vomiting. BALAJI drain 90 mL serosanguineous output. Patient only on clear liquids did not want to be advanced. Afebrile. WBC has come down from 16-9.3 total bilirubin has gone up from 3.3-4.3 AST around the same at 270 ALT went from 1 55-2 67 alk phos 150-262 PHYSICAL EXAM: VITAL SIGNS: Reviewed. GENERAL: Well-developed in no acute distress. ABDOMEN: Soft. Nondistended. Mild tenderness at incision sites. BALAJI drain in place NEUROLOGIC: Alert and oriented. Cranial nerves II through XII grossly intact. ASSESSMENT: 1. Acute gangrenous calculus cholecystitis with hydrops status post laparoscopic cholecystectomy 2. Elevated LFTs and total bilirubin PLAN: -Continue clear liquid diet and advance as tolerated -Repeat LFTs in a.m. -Patient has been seen by service, recommendations noted -Encourage patient to increase activity level -Encourage patient to use incentive spirometer -Continue antibiotics -Mylicon gas drops added -DVT prophylaxis subcu heparin Physician Plant Pathologist note has been reviewed by physician. Signing provider agrees with the documented findings, assessment, and plan of care. I love only having 2 surgeons I have personally seen and examined the patient, reviewed the WATER PLANT PUMP OPERATOR /PAs history, exam and MDM and agree with the assessment and plan as written. Based on total visit time, I have performed more than 50% of the visit. As above: Patient's liver enzymes increase further. She otherwise feels well. White blood cell count normal. BALAJI drain serosanguineous. Suspect choledocholithiasis. GI following. Anticipate ERCP tomorrow. Objective - Vital Signs Vital signs: Vital Signs Temp 98.0 F 03/10/24 07:15 Pulse 84 03/10/24 07:15 Resp 18 03/10/24 08:00 BP 138/72 03/10/24 07:15 Pulse Ox 97 03/10/24 07:15 FiO2 Intake & Output 03/09/24 03/10/24 03/10/24 18:59 06:59 18:59 Output Total 50 40 Balance -50 -40 Output: Drainage 50 40 Right Anterior Medial 50 40 Abdomen Other: # Voids 1 - Labs CBC & Chem 7: 03/10/24 08:49 03/10/24 08:49 Labs: Abnormal Lab Results - Last 24 Hours (Table) 03/09/24 03/09/24 03/10/24 Range/Units 18:08 20:11 08:49 Neutrophils # (1.3-7.7) k/uL Lymphocytes # (1.0-4.8) k/uL Sodium 135 L (137-145) mmol/L BUN 5 L (7-17) mg/dL Glucose 141 H (74-99) mg/dL POC Glucose (mg/dL) 117 H 169 H (70-110) mg/dL Calcium 8.0 L (8.4-10.2) mg/dL Total Bilirubin 4.3 H (0.2-1.3) mg/dL AST 270 H (14-36) U/L ALT 267 H (4-34) U/L Alkaline Phosphatase 262 H (38-126) U/L Total Protein 5.6 L (6.3-8.2) g/dL Albumin 3.0 L (3.5-5.0) g/dL 03/10/24 03/10/24 Range/Units 08:49 11:47 Neutrophils # 8.0 H (1.3-7.7) k/uL Lymphocytes # 0.8 L (1.0-4.8) k/uL Sodium (137-145) mmol/L BUN (7-17) mg/dL Glucose (74-99) mg/dL POC Glucose (mg/dL) 114 H (70-110) mg/dL Calcium (8.4-10.2) mg/dL Total Bilirubin (0.2-1.3) mg/dL AST (14-36) U/L ALT (4-34) U/L Alkaline Phosphatase (38-126) U/L Total Protein (6.3-8.2) g/dL Albumin (3.5-5.0) g/dL
[2024-03-10] MEDS: SIMETHICONE 40 MG/0.6 ML DROPS 2,000 MG/30 ML BOTTLE PO SCH (12:59)
--- NOTE | 2024-03-10 14:19 | P.PN ---
Subjective Progress Note Date: 03/10/24 patient 73-year-old lady with past medical history significant for hypertension, hyperlipidemia, diabetes mellitus presented to ER because abdominal pain. Patient stated she was all right 1 day back when he started noticing pain in her right upper quadrant. Pain is constant, sharp, radiating to her back, not associated any nausea or vomiting. Denies any fever or chills. Patient has experienced similar pain in the past. Denies any altered bowel movements. There is no complaint of blood in the stools. Denies any increased frequency, hesitancy or urgency during urination. There is no complaint of chest pain or shortness of breath. Because of the symptoms, patient presented to the ER Initial lab work done in the ER showed WBC 6.3, hemoglobin 16, platelet count 270, sodium 137, potassium 4.1, BUN 9, creatinine 0.52, AST 20, ALT 17, alk phos 113, bilirubin 0.8 UA negative for infection EKG done in the ER showed heart rate of 65, no ST segment elevation or depression seen, no T-wave inversions seen. CT abdominal pelvis done showed no acute intra-abdominal process Ultrasound abdomen done showed hydropic gallbladder with cholelithiasis. No wall thickening or sonographic Stringer sign Patient admitted to internal medicine service 03/09. Patient seen and examined. S/p laparoscopic cholecystectomy on 03/08. Currently denies abdominal pain. Denies nausea or vomiting 03/10. Patient seen and examined. Blood work done this morning showed sodium 135, potassium 3.6, bilirubin 4.3, AST 270, ALT 267, alk phos 262. ERCP being planned by GI. REVIEW OF SYSTEMS: CONSTITUTIONAL: No fever, no malaise,. CARDIOVASCULAR: No chest pain, no palpitations, no syncope. PULMONARY: No shortness of breath, no cough, GASTROINTESTINAL: As mentioned above NEUROLOGICAL: No headaches, no weakness, PHYSICAL EXAMINATION: GENERAL: The patient is alert and oriented x3, not in any acute distress. Well developed, well nourished. HEENT: Pupils are round and equally reacting to light. EOMI. No scleral icterus. No conjunctival pallor. Normocephalic, atraumatic. No pharyngeal erythema. No thyromegaly. CARDIOVASCULAR: S1 and S2 present. No murmurs, rubs, or gallops. PULMONARY: Chest is clear to auscultation, no wheezing or crackles. ABDOMEN: Soft, nontender, nondistended, normoactive bowel sounds. No palpable organomegaly. Laparoscopic surgical incisions seen, drain seen MUSCULOSKELETAL: No joint swelling or deformity. EXTREMITIES: No cyanosis, clubbing, or pedal edema. NEUROLOGICAL: Gross neurological examination did not reveal any focal deficits. SKIN: No rashes. Assessment and plan Abdominal pain Acute acalculous cholecystitis Acute transaminitis Hydropic gallbladder Hypertension hyperlipidemia Diabetes mellitus Monitor vital signs Monitor CBC Monitor CMP Continue telemetry monitoring Status post lap reg on 03/08 Continue antiemetics continue pain management Continue IV fluids Patient was on Levaquin, will add Flagyl Monitor LFTs Surgery following GI following, planning ERCP tomorrow Labs and medication were reviewed.. Continue same treatment. Continue with sy mptomatic treatment. Resume home medication. Monitor labs and vitals. DVT and GI prophylaxis. Further recommendations as per clinical course of the patient Dictation was produced using [employer] dictation software. please excuse any grammatical, word or spelling errors. Objective - Vital Signs Vital signs: Vital Signs Temp 98.0 F 03/10/24 07:15 Pulse 84 03/10/24 07:15 Resp 18 03/10/24 08:00 BP 138/72 03/10/24 07:15 Pulse Ox 97 03/10/24 07:15 FiO2 Intake & Output 03/09/24 03/10/24 03/10/24 18:59 06:59 18:59 Output Total 50 40 Balance -50 -40 Output: Drainage 50 40 Right Anterior Medial 50 40 Abdomen Other: # Voids 1 - Labs CBC & Chem 7: 03/10/24 08:49 03/10/24 08:49 Labs: Abnormal Lab Results - Last 24 Hours (Table) 03/09/24 03/09/24 03/10/24 Range/Units 18:08 20:11 08:49 Neutrophils # (1.3-7.7) k/uL Lymphocytes # (1.0-4.8) k/uL Sodium 135 L (137-145) mmol/L BUN 5 L (7-17) mg/dL Glucose 141 H (74-99) mg/dL POC Glucose (mg/dL) 117 H 169 H (70-110) mg/dL Calcium 8.0 L (8.4-10.2) mg/dL Total Bilirubin 4.3 H (0.2-1.3) mg/dL AST 270 H (14-36) U/L ALT 267 H (4-34) U/L Alkaline Phosphatase 262 H (38-126) U/L Total Protein 5.6 L (6.3-8.2) g/dL Albumin 3.0 L (3.5-5.0) g/dL 03/10/24 Range/Units 08:49 Neutrophils # 8.0 H (1.3-7.7) k/uL Lymphocytes # 0.8 L (1.0-4.8) k/uL Sodium (137-145) mmol/L BUN (7-17) mg/dL Glucose (74-99) mg/dL POC Glucose (mg/dL) (70-110) mg/dL Calcium (8.4-10.2) mg/dL Total Bilirubin (0.2-1.3) mg/dL AST (14-36) U/L ALT (4-34) U/L Alkaline Phosphatase (38-126) U/L Total Protein (6.3-8.2) g/dL Albumin (3.5-5.0) g/dL
--- NOTE | 2024-03-10 16:43 | P.PN ---
Subjective Progress Note Date: 03/10/24 Principal diagnosis: Elevated LFTs 73-year-old female who had presented to the hospital complaining of right upper quadrant abdominal pain radiating to her back. Symptoms started Thursday evening around 11 PM. She was having nausea vomiting associated with it. Reportedly similar symptoms occurred a year ago. She had a gallbladder ultrasound reported hydropic gallbladder with gallstones mildly dilated CBD and fatty liver. LFTs were normal on admission. General surgery was consulted and patient underwent laparoscopic cholecystectomy yesterday with findings of acute gangrenous calculus cholecystitis with hydrops. She is postop day #1. She was noted to have elevated LFTs and primary medical team consulted gastroenterology due to elevated LFTs. Patient states abdominal pain is improved. She is tolerating clear liquid diet. She has been afebrile. Denies any nausea or vomiting. Today's labs WBC 16.0 hemoglobin 14.2 hematocrit 43 platelet count 201,000 INR was 1.0 total bilirubin 3.3 AST 277 ALT 155 alkaline phosphatase 150 03/10/2024 Patient seen and examined today as a follow-up. States that she is having more abdominal pain in her upper abdomen by her incision. She has not much of an appetite. She was up and ambulating states that she did pass some gas. Denies any nausea or vomiting. Repeat labs today WBC 9.3 hemoglobin 14.6 platelet count 230,000 total bilirubin 4.3 AST 270 ALT 267 alkaline phosphatase 262 Objective - Vital Signs Vital signs: Vital Signs Temp 98.0 F 03/10/24 07:15 Pulse 84 03/10/24 07:15 Resp 18 03/10/24 08:00 BP 138/72 03/10/24 07:15 Pulse Ox 97 03/10/24 07:15 FiO2 Intake & Output 03/09/24 03/10/24 03/10/24 18:59 06:59 18:59 Output Total 50 40 Balance -50 -40 Output: Drainage 50 40 Right Anterior Medial 50 40 Abdomen Other: # Voids 1 - Exam General appearance: The patient is alert, oriented, appears in no acute distress. HET: Head is normocephalic and atraumatic. Conjunctiva pink. Sclera anicteric. Neck: Supple without lymphadenopathy. Abdomen: Soft, tender to palpation near surgical incisions, nondistended with bowel sounds. Extremities: Normal skin color and turgor. No pedal edema Skin: No rashes, jaundice. Neurological: No focal deficits. Alert and oriented. - Labs CBC & Chem 7: 03/10/24 08:49 03/10/24 08:49 Labs: Abnormal Lab Results - Last 24 Hours (Table) 03/09/24 03/09/24 03/10/24 Range/Units 18:08 20:11 08:49 Neutrophils # (1.3-7.7) k/uL Lymphocytes # (1.0-4.8) k/uL Sodium 135 L (137-145) mmol/L BUN 5 L (7-17) mg/dL Glucose 141 H (74-99) mg/dL POC Glucose (mg/dL) 117 H 169 H (70-110) mg/dL Calcium 8.0 L (8.4-10.2) mg/dL Total Bilirubin 4.3 H (0.2-1.3) mg/dL AST 270 H (14-36) U/L ALT 267 H (4-34) U/L Alkaline Phosphatase 262 H (38-126) U/L Total Protein 5.6 L (6.3-8.2) g/dL Albumin 3.0 L (3.5-5.0) g/dL 03/10/24 Range/Units 08:49 Neutrophils # 8.0 H (1.3-7.7) k/uL Lymphocytes # 0.8 L (1.0-4.8) k/uL Sodium (137-145) mmol/L BUN (7-17) mg/dL Glucose (74-99) mg/dL POC Glucose (mg/dL) (70-110) mg/dL Calcium (8.4-10.2) mg/dL Total Bilirubin (0.2-1.3) mg/dL AST (14-36) U/L ALT (4-34) U/L Alkaline Phosphatase (38-126) U/L Total Protein (6.3-8.2) g/dL Albumin (3.5-5.0) g/dL Assessment and Plan (1) Elevated LFTs Narrative/Plan: 73-year-old female who is postop day #1 for laparoscopic cholecystectomy with findings of acute gangrenous calculus cystitis. Patient initially came in with normal LFTs. Noted to have elevation on postop day 1. Patient's pain is improved. This may be secondary to extent of inflammation and gangrenous gallbladder. Need to consider possible choledocholithiasis. Will plan for repeat LFTs tomorrow with further recommendations. With increase in LFTs and patient was discussed with general surgery will proceed with ERCP to evaluate for possible choledocholithiasis. Current Visit: Yes Status: Acute Code(s): R79.89 - OTHER SPECIFIED ABNORMAL FINDINGS OF BLOOD CHEMISTRY SNOMED Code(s): 315507391 (2) Gangrenous cholecystitis Current Visit: Yes Status: Acute Code(s): K81.0 - ACUTE CHOLECYSTITIS SNOMED Code(s): 61470293 Plan: 1. Continue symptomatic and supportive care 2. Continue clear liquid diet, n.p.o. after midnight 3. Repeat CMP tomorrow 4. Continue with antibiotics per recommendations from general surgery 5. Case discussed with general surgery and due to increased LFT levels will tentatively schedule for possible ERCP tomorrow Thank you for this consultation, we will continue to follow. Dr. Galdino Kelsey I agree with the dictator's note, documented as a scribe by Kisha Willis.
[2024-03-10 16:58] LABS: Glucose,Whole Blood 119 mg/dL (70-110)
[2024-03-10] MEDS: metroNIDAZOLE-NS PMX 500 MG in SALINE 1 100ML.BAG IVPB SCH (16:58)
[2024-03-10] MEDS ORDERED: TEMAZEPAM 15 MG CAP PO PRN (18:08)
[2024-03-10 20:29] LABS: Glucose,Whole Blood 139 mg/dL (70-110)
[2024-03-11 05:54] LABS: Glucose,Whole Blood 110 mg/dL (70-110)
[2024-03-11 08:50] VITALS: BP 133/62; PULSE 85; RESP 18; TEMP 98.4
[2024-03-11 09:09] LABS: BUN/Creat Ratio 10.67 Ratio (12.00-20.00); Blood Urea Nitrogen 6.4 mg/dL (9.0-27.0); Chloride 102 mmol/L (96-109); Glucose 113 mg/dL (70-110); Potassium 3.7 mmol/L (3.5-5.5); Sodium 138 mmol/L (135-145)
[2024-03-11 09:10] LABS: ALT 184 U/L (8-44); AST 80 U/L (13-35); Albumin 3.2 g/dL (3.8-4.9); Alkaline Phosphatase 237 U/L (41-126); Calcium 8.2 mg/dL (8.7-10.3); HCT 40.3 % (37.2-46.3); HGB 13.5 g/dL (12.0-15.0); MCH 29.7 pg (27.0-32.0); MCHC 33.5 g/dL (32.0-37.0); MCV 88.6 FL (80.0-97.0); Mean Platelet Volume 10.5 FL (9.5-12.2); NRBC Per 100 WBC 0 X 10*3/uL (0.00-0.01); Platelet Count 249 X 10*3/uL (140-440); RBC 4.55 X 10*6/uL (4.10-5.20); Total Bilirubin 1.4 mg/dL (0.3-1.2); Total Protein 5.2 g/dL (6.2-8.2); WBC 7.81 X 10*3/uL (4.50-10.00)
--- NOTE | 2024-03-11 11:15 | P.PN ---
Subjective Progress Note Date: 03/11/24 Principal diagnosis: Elevated LFTs 73-year-old female who had presented to the hospital complaining of right upper quadrant abdominal pain radiating to her back. Symptoms started Thursday evening around 11 PM. She was having nausea vomiting associated with it. Reportedly similar symptoms occurred a year ago. She had a gallbladder ultrasound reported hydropic gallbladder with gallstones mildly dilated CBD and fatty liver. LFTs were normal on admission. General surgery was consulted and patient underwent laparoscopic cholecystectomy yesterday with findings of acute gangrenous calculus cholecystitis with hydrops. She is postop day #1. She was noted to have elevated LFTs and primary medical team consulted gastroenterology due to elevated LFTs. Patient states abdominal pain is improved. She is tolerating clear liquid diet. She has been afebrile. Denies any nausea or vomiting. Today's labs WBC 16.0 hemoglobin 14.2 hematocrit 43 platelet count 201,000 INR was 1.0 total bilirubin 3.3 AST 277 ALT 155 alkaline phosphatase 150 03/10/2024 Patient seen and examined today as a follow-up. States that she is having more abdominal pain in her upper abdomen by her incision. She has not much of an appetite. She was up and ambulating states that she did pass some gas. Denies any nausea or vomiting. Repeat labs today WBC 9.3 hemoglobin 14.6 platelet count 230,000 total bilirubin 4.3 AST 270 ALT 267 alkaline phosphatase 262 03/11/2024 Patient seen and examined today as a follow-up. She states that she is feeling much better today. Abdominal pain is improved and no nausea or vomiting. She has more of an appetite today. She has been afebrile. LFTs have improved. States that she has been up and ambulating, passing gas, no bowel movement. Objective - Vital Signs Vital signs: Vital Signs Temp 98.4 F 03/11/24 07:52 Pulse 85 03/11/24 07:52 Resp 18 03/11/24 07:52 BP 133/62 03/11/24 07:52 Pulse Ox 97 03/11/24 07:52 FiO2 Intake & Output 03/10/24 03/11/24 03/11/24 18:59 06:59 18:59 Output Total 40 40 30 Balance -40 -40 -30 Output: Drainage 40 40 30 Right Anterior Medial 40 40 30 Abdomen Other: Voiding Method Toilet # Voids 2 - Exam General appearance: The patient is alert, oriented, appears in no acute distress. HET: Head is normocephalic and atraumatic. Conjunctiva pink. Sclera anicteric. Neck: Supple without lymphadenopathy. Abdomen: Soft, nontender other than surgical tenderness. Nondistended with bowel sounds. Extremities: Normal skin color and turgor. No pedal edema Skin: No rashes, jaundice. Neurological: No focal deficits. Alert and oriented. - Labs CBC & Chem 7: 03/11/24 04:38 03/11/24 04:38 Labs: Abnormal Lab Results - Last 24 Hours (Table) 03/10/24 03/10/24 03/10/24 Range/Units 08:49 11:47 16:56 Sodium 135 L (137-145) mmol/L BUN 5 L (7-17) mg/dL BUN/Creatinine Ratio (12.00-20.00) Ratio Glucose 141 H (74-99) mg/dL POC Glucose (mg/dL) 114 H 119 H (70-110) mg/dL Calcium 8.0 L (8.4-10.2) mg/dL Total Bilirubin 4.3 H (0.2-1.3) mg/dL AST 270 H (14-36) U/L ALT 267 H (4-34) U/L Alkaline Phosphatase 262 H (38-126) U/L Total Protein 5.6 L (6.3-8.2) g/dL Albumin 3.0 L (3.5-5.0) g/dL 03/10/24 03/11/24 Range/Units 20:28 04:38 Sodium (137-145) mmol/L BUN 6.4 L (7-17) mg/dL BUN/Creatinine Ratio 10.67 L (12.00-20.00) Ratio Glucose 113 H (74-99) mg/dL POC Glucose (mg/dL) 139 H (70-110) mg/dL Calcium 8.2 L (8.4-10.2) mg/dL Total Bilirubin 1.4 H (0.2-1.3) mg/dL AST 80 H (14-36) U/L ALT 184 H (4-34) U/L Alkaline Phosphatase 237 H (38-126) U/L Total Protein 5.2 L (6.3-8.2) g/dL Albumin 3.2 L (3.5-5.0) g/dL Assessment and Plan (1) Elevated LFTs Narrative/Plan: 73-year-old female who is postop day #1 for laparoscopic cholecystectomy with f indings of acute gangrenous calculus cystitis. Patient initially came in with normal LFTs. Noted to have elevation on postop day 1. Patient's pain is improved. This may be secondary to extent of inflammation and gangrenous gallbladder. Need to consider possible choledocholithiasis. Will plan for repeat LFTs tomorrow with further recommendations. With increase in LFTs and patient was discussed with general surgery and ERCP was tentatively planned however repeat LFTs today had significantly improved as well as patient's pain. Elevated LFTs likely secondary to gangrenous cholecystitis however patient may have passed a stone. Will cancel ERCP and general surgery is clearing patient for discharge. Current Visit: Yes Status: Acute Code(s): R79.89 - OTHER SPECIFIED ABNORMAL FINDINGS OF BLOOD CHEMISTRY SNOMED Code(s): 101935414 (2) Gangrenous cholecystitis Current Visit: Yes Status: Acute Code(s): K81.0 - ACUTE CHOLECYSTITIS SNOMED Code(s): 57043018 Plan: 1. Continue symptomatic and supportive care 2. Diet as tolerated 3. Continue with antibiotics per recommendations from general surgery 4. Case discussed with general surgery, ERCP canceled due to improvement in LFTs and patient's pain. Thank you for this consultation, patient is cleared from gastroenterology for discharge. Dr. Galdino Kelsey I agree with the dictator's note, documented as a scribe by Kisha Willis.
[2024-03-11 11:36] LABS: Glucose,Whole Blood 109 mg/dL (70-110)
--- NOTE | 2024-03-11 12:16 | P.PN ---
Subjective Progress Note Date: 03/11/24 CHIEF COMPLAINT: Gangrenous cholecystitis HISTORY OF PRESENT ILLNESS: Patient postop day #3 status post laparoscopic cholecystectomy. Patient reports she is feeling better. Her pain has improved. She denies any nausea vomiting. She was able to tolerate diet last night. Her urine is clearing. BALAJI drain in 30 mL serosanguineous output. Afebrile. WBC 7.81 total bilirubin is down from 4.3-1.4 LFTs trending down PHYSICAL EXAM: VITAL SIGNS: Reviewed. GENERAL: Well-developed in no acute distress. ABDOMEN: Soft. Nondistended. Mild tenderness at incision sites. BALAJI drain in place NEUROLOGIC: Alert and oriented. Cranial nerves II through XII grossly intact. ASSESSMENT: 1. Acute gangrenous calculus cholecystitis with hydrops status post laparoscopic cholecystectomy 2. Elevated LFTs and total bilirubin. Patient likely passed a stone PLAN: -Advance diet to low-fat -No need for ERCP at this time. LFTs and bilirubin are improving. Patient's symptoms have improved. Patient likely passed stone. Dr. Dowling did discuss case with GI service. -Patient can be discharged from surgical standpoint -No further antibiotics needed at discharge -Patient to be discharged with BALAJI drain -Recommend repeating CBC and CMP on Thursday outpatient Physician Firer Locomotive note has been reviewed by physician. Signing provider agrees with the documented findings, assessment, and plan of care. I love only having 2 surgeons I have personally seen and examined the patient, reviewed the WEIGHT CONTROL LECTURER /PAs history, exam and MDM and agree with the assessment and plan as written. Based on total visit time, I have performed more than 50% of the visit. As above: Patient doing well today. No abdominal pain. Drain output serosanguineous. Today's enzymes much improved. Spoke with GI. Suspect patient passed her stone. Hold off on ERCP. Patient would like to go home. February discharge. Follow-up 1 week. Objective - Vital Signs Vital signs: Vital Signs Temp 98.4 F 03/11/24 07:52 Pulse 85 03/11/24 08:00 Resp 18 03/11/24 08:00 BP 133/62 03/11/24 07:52 Pulse Ox 97 03/11/24 07:52 FiO2 Intake & Output 03/10/24 03/11/24 03/11/24 18:59 06:59 18:59 Output Total 40 40 30 Balance -40 -40 -30 Output: Drainage 40 40 30 Right Anterior Medial 40 40 30 Abdomen Other: Voiding Method Toilet Toilet # Voids 2 - Labs CBC & Chem 7: 03/11/24 04:38 03/11/24 04:38 Labs: Abnormal Lab Results - Last 24 Hours (Table) 03/10/24 03/10/24 03/10/24 Range/Units 11:47 16:56 20:28 BUN (9.0-27.0) mg/dL BUN/Creatinine Ratio (12.00-20.00) Ratio Glucose (70-110) mg/dL POC Glucose (mg/dL) 114 H 119 H 139 H (70-110) mg/dL Calcium (8.7-10.3) mg/dL Total Bilirubin (0.3-1.2) mg/dL AST (13-35) U/L ALT (8-44) U/L Alkaline Phosphatase (41-126) U/L Total Protein (6.2-8.2) g/dL Albumin (3.8-4.9) g/dL 03/11/24 Range/Units 04:38 BUN 6.4 L (9.0-27.0) mg/dL BUN/Creatinine Ratio 10.67 L (12.00-20.00) Ratio Glucose 113 H (70-110) mg/dL POC Glucose (mg/dL) (70-110) mg/dL Calcium 8.2 L (8.7-10.3) mg/dL Total Bilirubin 1.4 H (0.3-1.2) mg/dL AST 80 H (13-35) U/L ALT 184 H (8-44) U/L Alkaline Phosphatase 237 H (41-126) U/L Total Protein 5.2 L (6.2-8.2) g/dL Albumin 3.2 L (3.8-4.9) g/dL
--- NOTE | 2024-03-11 12:52 | P.DS ---
Providers Date of admission: 03/09/24 11:07 Expected date of discharge: 03/11/24 Attending physician: Josué Mathews MD Consults: 03/08/24 02:37 Consult Physician Routine Consulting Provider: Cam Dowling Consult Reason/Comments: intractable abd pain of unknown etiology Do you want consulting provider notified?: Yes 03/09/24 10:39 Consult Physician Routine Consulting Provider: Shelli Kelsey Consult Reason/Comments: Elevated LFTs, recent lap reg Do you want consulting provider notified?: Yes Primary care physician: [facility] Course: Discharge diagnoses; Abdominal pain Acute acalculous cholecystitis Acute transaminitis Hydropic gallbladder Hypertension hyperlipidemia Diabetes mellitus Hospital course; patient 73-year-old lady with past medical history significant for hypertension, hyperlipidemia, diabetes mellitus presented to ER because abdominal pain. Patient stated she was all right 1 day back when he started noticing pain in her right upper quadrant. Pain is constant, sharp, radiating to her back, not associated any nausea or vomiting. Denies any fever or chills. Patient has experienced similar pain in the past. Denies any altered bowel movements. There is no complaint of blood in the stools. Denies any increased frequency, hesitancy or urgency during urination. There is no complaint of chest pain or shortness of breath. Because of the symptoms, patient presented to the ER Initial lab work done in the ER showed WBC 6.3, hemoglobin 16, platelet count 270, sodium 137, potassium 4.1, BUN 9, creatinine 0.52, AST 20, ALT 17, alk phos 113, bilirubin 0.8 UA negative for infection EKG done in the ER showed heart rate of 65, no ST segment elevation or depression seen, no T-wave inversions seen. CT abdominal pelvis done showed no acute intra-abdominal process Ultrasound abdomen done showed hydropic gallbladder with cholelithiasis. No wall thickening or sonographic Stringer sign Patient admitted to internal medicine service 03/09. Patient seen and examined. S/p laparoscopic cholecystectomy on 03/08. Currently denies abdominal pain. Denies nausea or vomiting 03/10. Patient seen and examined. Blood work done this morning showed sodium 135, potassium 3.6, bilirubin 4.3, AST 270, ALT 267, alk phos 262. ERCP being planned by GI. 03/11. Patient seen and examined blood work done this morning showed WBC 10.81, hemoglobin 13.5, sodium 138, potassium 3.7, AST 80, ALT 184, bilirubin 1.4. Since patient LFTs improved, GI and general surgery discussed and at this time ERCP was discontinued. General surgery recommended discharging patient on pain medication outpatient follow-up. PHYSICAL EXAMINATION: GENERAL: The patient is alert and oriented x3, not in any acute distress. Well developed, well nourished. HEENT: Pupils are round and equally reacting to light. EOMI. No scleral icterus. No conjunctival pallor. Normocephalic, atraumatic. No pharyngeal erythema. No thyromegaly. CARDIOVASCULAR: S1 and S2 present. No murmurs, rubs, or gallops. PULMONARY: Chest is clear to auscultation, no wheezing or crackles. ABDOMEN: Soft, nontender, nondistended, normoactive bowel sounds. No palpable organomegaly. Laparoscopic surgical incisions seen, drain seen MUSCULOSKELETAL: No joint swelling or deformity. EXTREMITIES: No cyanosis, clubbing, or pedal edema. NEUROLOGICAL: Gross neurological examination did not reveal any focal deficits. SKIN: No rashes. Dictation was produced using [employer] dictation software. please excuse any grammatical, word or spelling errors. Patient Condition at Discharge: Stable Plan - Discharge Summary Discharge Rx Participant: No New Discharge Prescriptions: New HYDROcodone/APAP 5-325MG [Bradley 5-325] 1 tab PO Q6HR PRN 3 Days #12 tab PRN Reason: Pain Continue estradioL [Estrace] 1 mg PO HS Losartan [Cozaar] 25 mg PO HS Semaglutide [Ozempic] 1 mg SQ TU@0900 Omeprazole [PriLOSEC] 20 mg PO HS Discontinued Rosuvastatin [Crestor] 20 mg PO HS Discharge Medication List estradioL [Estrace] 1 mg PO HS 07/20/17 [History] Losartan [Cozaar] 25 mg PO HS 03/08/24 [History] Omeprazole [PriLOSEC] 20 mg PO HS 03/08/24 [History] Semaglutide [Ozempic] 1 mg SQ TU@0900 03/08/24 [History] HYDROcodone/APAP 5-325MG [Bradley 5-325] 1 tab PO Q6HR PRN 3 Days #12 tab 03/11/24 [Rx] Follow up Appointment(s)/Referral(s): Cam Dowling MD [Medical Doctor] - 2 Weeks James Adrian MD [Primary Care Provider] - 1-2 days Patient Instructions/Handouts: M[facility] Drain Care (DC) Activity/Diet/Wound Care/Special Instructions: No driving while taking Bradley No lifting over 10 pounds You may shower. No soaking or tub baths for 2 weeks Very light activity until you are reevaluated at your follow up appointment with your surgeon Keep a log of BALAJI drain output and bring with you to your follow-up appointment Milk/strip drains 2-3 times a day Discharge Disposition: HOME SELF-CARE
[2024-03-11] MEDS: INDOMETHACIN 100 MG SUPPOSITORY RECTAL ONE (13:20)
== END 2024-03-11 15:40 | disposition home or self-care (01) | DRG 409 ==
LOC: EC 23:06 → 6NMEDSUR 03-08 02:37 → 1SOBS 03-08 06:24 → OBSVTOIN 03-09 11:07 → 4SSUR 03-10 16:53
PROVIDERS: ADMIT Internal Medicine; ATTEND Internal Medicine
PROC: 0FT44ZZ Resection of Gallbladder, Percutaneous Endoscopic Approach (ICD-10-PCS; 2024-03-08)
PROC: 0F944ZZ Drainage of Gallbladder, Percutaneous Endoscopic Approach (ICD-10-PCS; principal; 2024-03-08 13:15)
DX: K80.00 Calculus of gallbladder with acute cholecystitis without obstruction (principal); K82.1 Hydrops of gallbladder; E11.9 Type 2 diabetes mellitus without complications; K82.A1 Gangrene of gallbladder in cholecystitis; K76.0 Fatty (change of) liver, not elsewhere classified; I10 Essential (primary) hypertension; E78.5 Hyperlipidemia, unspecified; Z79.85 Long-term (current) use of injectable non-insulin antidiabetic drugs; Z79.890 Hormone replacement therapy; Z79.899 Other long term (current) drug therapy; Z88.8 Allergy status to other drugs, medicaments and biological substances; Z88.0 Allergy status to penicillin
CPT/HCPCS: 36415; 74177; 76705; 80053; 81003; 82150; 83605; 83690; 84484; 85025; 85027; 85610; 85730; 88304; 93005; 94760; 96361; 96374; 96375; 96376; 99285

== ENCOUNTER → 2024-03-15 | Outpatient (CLI) | payer MEDICARE ==
[2024-03-15 15:15] LABS: HCT 45.4 % (37.2-46.3); HGB 14.9 g/dL (12.0-15.0); MCH 29.7 pg (27.0-32.0); MCHC 32.8 g/dL (32.0-37.0); MCV 90.6 FL (80.0-97.0); Mean Platelet Volume 10.2 FL (9.5-12.2); NRBC Per 100 WBC 0 X 10*3/uL (0.00-0.01); Platelet Count 333 X 10*3/uL (140-440); RBC 5.01 X 10*6/uL (4.10-5.20); RDW 14.3 % (11.5-14.5); WBC 9.56 X 10*3/uL (4.50-10.00)
[2024-03-15 15:42] LABS: ALT 68 U/L (8-44); AST 37 U/L (13-35); Albumin 4.1 g/dL (3.8-4.9); Albumin/Globulin Ratio 1.52 Ratio (1.60-3.17); Alkaline Phosphatase 178 U/L (41-126); BUN/Creat Ratio 12.67 Ratio (12.00-20.00); Blood Urea Nitrogen 7.6 mg/dL (9.0-27.0); Calcium 9.5 mg/dL (8.7-10.3); Carbon Dioxide 28.2 mmol/L (21.6-31.8); Chloride 100 mmol/L (96-109); Globulin 2.7 g/dL (1.6-3.3); Glucose 138 mg/dL (70-110); Potassium 3.8 mmol/L (3.5-5.5); Sodium 141 mmol/L (135-145); Total Bilirubin 0.6 mg/dL (0.3-1.2); Total Protein 6.8 g/dL (6.2-8.2)
== END | disposition home or self-care (01) ==
LOC: LABWHC1 11:36
PROVIDERS: ATTEND Surgery
DX: K82.A1 Gangrene of gallbladder in cholecystitis (principal)
CPT/HCPCS: 36415; 80053; 85027

== ENCOUNTER → 2025-01-09 | Outpatient (CLI) | payer MEDICARE ==
--- NOTE | 2025-01-09 14:08 | MM ---
Reason for Exam: Screening (asymptomatic). Last mammogram was performed 2 year(s) and 1 month(s) ago. Patient History: Menarche at age 16. First Full-Term at age 24. Hysterectomy at age 35. Postmenopausal. Currently using Estrogen, beginning at age 35 for 36 years. 09/21/2018, MG discontinued stereo core RT on the right side. Risk Values: Helena 5 year model risk: 1.4%. NCI Lifetime model risk: 3.8%. Prior Study Comparison: 12/26/2019 Bilateral Diagnostic Mammogram, [facility]. 11/26/2021 Bilateral Screening Mammogram, [facility]. 11/27/2022 Bilateral MG screening mammo w CAD, [facility]. Tissue Density: There are scattered areas of fibroglandular density. Findings: Analyzed By CAD. There is no suspicious group of microcalcifications in either breast. 5 mm nodular density upper outer left breast 6 cm from the nipple. Additional views are recommended. Overall Assessment: Incomplete: need additional imaging evaluation, BI-RAD 0 Management: Diagnostic Mammogram of the left breast. . Patient should continue monthly self-breast exams. A clinical breast exam by your physician is recommended on an annual basis. This exam should not preclude additional follow-up of suspicious palpable abnormalities. Note on Helena scores and lifetime risk: 1. A Helena score greater than 3% is considered moderate risk. If this is the case, consider specialist referral to assess eligibility for a risk reducing agent. 2. If overall lifetime risk for the development of breast cancer is 20% or higher, the patient may qualify for future screening with alternating mammogram and breast MRI. [facility], , 01/09/2025 2:06 PM. Electronically signed and approved by: Ean Chaidez M.D. Radiologis
--- NOTE | 2025-01-09 15:22 | BD ---
EXAMINATION TYPE: Axial Bone Density DATE OF EXAM: 01/09/2025 CLINICAL HISTORY: 74 years old Female. ICD-10 CODE: M81.0 AGE-RELATED OSTEOPOROSIS W/ , Additional History: Height: 58in Weight: 150 FRAX RISK QUESTIONS: Family History (Parent hip fracture): yes Secondary Osteoporosis: 3. Menopause before 45: yes RISK FACTORS HISTORY OF: MEDICATIONS: EXAM MEASUREMENTS: Bone mineral densitometry was performed using the [employer] System. Bone mineral density as measured about the Lumbar spine is: ----- L1-L4(G/cm2): 1.086 T Score Values are as follows: ----- L1: -1.0 ----- L2: -1.5 ----- L3: -0.6 ----- L4: -0.4 ----- L1-L4: -0.8 Z Score Values are as follows: ----- L1: 0.6 ----- L2: 0.1 ----- L3: 1.0 ----- L4: 1.2 ----- L1-L4: 0.8 Bone mineral density has: Decreased -0.6% since study of: 11-26-21 Bone mineral density about the R hip (g/cm2): 0.815 Bone mineral density about the L hip (g/cm2): 0.827 T Score values are as follows: -----R Neck: -1.7 -----L Neck: -1.7 -----R Total: -1.5 -----L Total: -1.4 Z Score values are as follows: -----R Neck: 0.0 -----L Neck: 0.0 -----R Total: 0.0 -----L Total: 0.1 Bone mineral density has: Decreased -2.4% since study of: 11-26-21 FRAX%s: The graph provided illustrates a 17.4% chance for a major osteoporotic fx and a 6.2% chance f or the hips probability for fx in 10 years time. IMPRESSION: Osteopenia (T Score between -2.5 and -1). There is slightly increased risk of fracture and the patient may be considered for treatment. Re-Screen 2-5 years. NOTE: T-SCORE=SD OF THE YOUNG ADULT MEAN. [facility], , 01/09/2025 3:20 PM
== END | disposition home or self-care (01) ==
LOC: RADMAMWWP 13:50
PROVIDERS: ATTEND Internal Medicine Geriatric Medicine
DX: Z12.31 Encounter for screening mammogram for malignant neoplasm of breast (principal); R92.323 Mammographic fibroglandular density, bilateral breasts; M81.0 Age-related osteoporosis without current pathological fracture; M85.89 Other specified disorders of bone density and structure, multiple sites; Z78.0 Asymptomatic menopausal state
CPT/HCPCS: 77063; 77067; 77080

== ENCOUNTER → 2025-01-11 | Outpatient (CLI) | payer MEDICARE ==
--- NOTE | 2025-01-11 11:34 | MM ---
Reason for Exam: Additional evaluation requested from abnormal screening. Last screening mammogram was performed less than 1 month ago. Patient History: Menarche at age 16. First Full-Term at age 24. Hysterectomy at age 35. Postmenopausal. Currently using Estrogen, beginning at age 35 for 36 years. 09/21/2018, MG discontinued stereo core RT on the right side. Risk Values: Helena 5 year model risk: 1.4%. NCI Lifetime model risk: 3.8%. Prior Study Comparison: 11/26/2021 Bilateral Screening Mammogram, [facility]. 11/27/2022 Bilateral MG screening mammo w CAD, [facility]. 01/09/2025 Bilateral MG 3D screening mammo w/cad, [facility]. Tissue Density: Left: The breasts are heterogeneously dense, which may obscure small masses. Findings: Analyzed By CAD. There is a persistent nodular density measuring 5 mm upper outer quadrant left breast approximately 6.5 cm from the nipple. Ultrasound is recommended. Overall Assessment: Incomplete: need additional imaging evaluation, BI-RAD 0 Management: Diagnostic Breast Ultrasound of the left breast. . Results were given to the patient verbally at the time of exam. Patient should continue monthly self-breast exams. A clinical breast exam by your physician is recommended on an annual basis. This exam should not preclude additional follow-up of suspicious palpable abnormalities. Note on Helena scores and lifetime risk: 1. A Helena score greater than 3% is considered moderate risk. If this is the case, consider specialist referral to assess eligibility for a risk reducing agent. 2. If overall lifetime risk for the development of breast cancer is 20% or higher, the patient may qualify for future screening with alternating mammogram and breast MRI. [facility], , 01/11/2025 11:31 AM. Electronically signed and approved by: Ean Chaidez M.D. Radiologis
--- NOTE | 2025-01-11 12:06 | USB ---
Reason for Exam: Additional evaluation requested from abnormal screening. Patient History: Menarche at age 16. First Full-Term at age 24. Hysterectomy at age 35. Postmenopausal. Currently using Estrogen, beginning at age 35 for 36 years. 09/21/2018, MG discontinued stereo core RT on the right side. Risk Values: Helena 5 year model risk: 1.4%. NCI Lifetime model risk: 3.8%. Technique: Method: Targeted. Doppler: Color. Patient Position: LPO. Prior Study Comparison: 11/26/2021 Bilateral Screening Mammogram, [facility]. 11/27/2022 Bilateral MG screening mammo w CAD, [facility]. 01/09/2025 Bilateral MG 3D screening mammo w/cad, [facility]. Findings: The upper outer quadrant of the left breast, the axilla of the left breast and the retroareolar of the left breast were scanned. Electronically signed and approved by: Ean Chaidez M.D. Radiologis
== END | disposition home or self-care (01) ==
LOC: RADMAMWWP 11:07
PROVIDERS: ATTEND Internal Medicine Geriatric Medicine
DX: R92.8 Other abnormal and inconclusive findings on diagnostic imaging of breast (principal); R92.332 Mammographic heterogeneous density, left breast; Z78.0 Asymptomatic menopausal state
CPT/HCPCS: 77061; 77065